=== PATIENT | female | born 1950 | race Caucasian/White ===

== ENCOUNTER 2018-07-03 10:59 | Outpatient (REF) | payer MEDICARE, BC, OTHER, SELFPAY ==
[2018-07-03 12:10] LABS: Abs Immature Grans 0.02 k/cumm (0.0-0.09); Absolute Basophil Count 0.03 k/cumm (0.0-0.2); Absolute Eosinophil Count 0.41 k/cumm (0.0-0.7); Absolute Lymphocyte Count 1.89 k/cumm (1.2-3.4); Absolute Monocyte Count 1.41 k/cumm (0.11-0.7); Absolute Neutrophil Count 5.26 k/cumm (1.2-6.7); Basophils % 0.3; Eosinophils % 4.5; HGB 7.3 g/dL (12.0-15.5); Immature Grans % 0.2; Mean Corp. HGB Concentration 31.7 g/dL (32.0-36.0); Mean Corpuscular Hemoglobin 31.2 pg (27.0-33.0); Mean Corpuscular Volume 98.3 fL (80-95); Mean Platelet Volume 10.4 fL (8.0-11.0); Monocytes % 15.6; Neutrophils % 58.4; Platelet Count 318 x1000/uL (130-400); RBC 2.34 m/cumm (4.00-5.20); RBC Distribution Width 14.6 % (11.7-14.6); White Blood Cell Count 9.02 k/cumm (4.4-10.8)
[2018-07-03 12:15] LABS: Vancomycin, Trough 17.5 ug/mL (10.0-20.0)
[2018-07-03 12:26] LABS: C-Reactive Protein 6.34 mg/dL (0.0-0.3)
== END 2018-07-03 11:19 ==
LOC: LBO 10:59
PROVIDERS: PCP Family Medicine; Visit Provider Orthopaedic Surgery Adult Reconstructive Orthopaedic Surgery
DX: M01.X59 Direct infection of unspecified hip in infectious and parasitic diseases classified elsewhere (principal); Z96.642 Presence of left artificial hip joint
CPT/HCPCS: 80202; 85025; 86140

== ENCOUNTER 2018-07-06 14:54 | Outpatient (REF) | payer MEDICARE, BC, OTHER, SELFPAY ==
[2018-07-06 16:18] LABS: ALT 24 U/L (12-78); AST 32 U/L (15-37); Albumin 2.5 g/dL (3.4-5.0); Alkaline Phosphatase 93 U/L (46-116); Anion Gap 10.7 mmol/L (3-11); BUN 11 mg/dL (7-18); Bilirubin, Total 0.3 mg/dL (0.2-1.0); CO2 25.3 mmol/L (21.0-32.0); Calcium 8.2 mg/dL (8.5-10.1); Chloride 104 mmol/L (98-107); Estimated GFR 37.18 (mL/min/1.73m2); Glucose 83 mg/dL (70-100); Potassium 3.9 mmol/L (3.5-5.1); Sodium 140 mmol/L (136-145); Total Protein 6.1 g/dL (6.4-8.2)
== END 2018-07-06 15:14 ==
LOC: LBN 14:54
PROVIDERS: PCP Family Medicine; Visit Provider Orthopaedic Surgery Adult Reconstructive Orthopaedic Surgery
DX: T84.52XD Infection and inflammatory reaction due to internal left hip prosthesis, subsequent encounter (principal)
CPT/HCPCS: 80053

== ENCOUNTER 2018-07-10 11:16 | Outpatient (CLI) | payer MEDICARE, BC, OTHER, SELFPAY ==
[2018-07-10 12:04] LABS: Abs Immature Grans 0.02 k/cumm (0.0-0.09); Absolute Basophil Count 0.04 k/cumm (0.0-0.2); Absolute Monocyte Count 1.05 k/cumm (0.11-0.7); Basophils % 0.3; Eosinophils % 1.9; HGB 8.4 g/dL (12.0-15.5); Immature Grans % 0.1; Lymphocytes % 10.4; Mean Corp. HGB Concentration 31.1 g/dL (32.0-36.0); Mean Corpuscular Hemoglobin 30.8 pg (27.0-33.0); Mean Corpuscular Volume 98.9 fL (80-95); Mean Platelet Volume 9.5 fL (8.0-11.0); Monocytes % 7.8; Neutrophils % 79.5; Platelet Count 491 x1000/uL (130-400); RBC 2.73 m/cumm (4.00-5.20); RBC Distribution Width 15.9 % (11.7-14.6); White Blood Cell Count 13.46 k/cumm (4.4-10.8)
[2018-07-10 12:06] LABS: Absolute Eosinophil Count 0.26 k/cumm (0.0-0.7)
[2018-07-10 12:23] LABS: Diff Comment RBC Morph Reviewed
[2018-07-10 12:24] LABS: Anisocytosis 1+; Hypochromasia 1+; Polychromasia Present
[2018-07-10 12:29] LABS: ALT 20 U/L (12-78); AST 34 U/L (15-37); Albumin 2.9 g/dL (3.4-5.0); Alkaline Phosphatase 106 U/L (46-116); Anion Gap 9.3 mmol/L (3-11); BUN 9 mg/dL (7-18); Bilirubin, Total 0.4 mg/dL (0.2-1.0); CO2 26.7 mmol/L (21.0-32.0); CREATININE 1.25 mg/dL (0.55-1.02); Calcium 8.7 mg/dL (8.5-10.1); Chloride 103 mmol/L (98-107); Estimated GFR 42.37 (mL/min/1.73m2); Glucose 92 mg/dL (70-100); Sodium 139 mmol/L (136-145); Total Protein 6.8 g/dL (6.4-8.2)
== END 2018-07-10 11:36 ==
PROVIDERS: Internal Medicine Infectious Disease; PCP Family Medicine; Visit Provider Orthopaedic Surgery Adult Reconstructive Orthopaedic Surgery
DX: Z79.2 Long term (current) use of antibiotics (principal); M00.9 Pyogenic arthritis, unspecified
CPT/HCPCS: 36415; 80053; 85025; 86140

== ENCOUNTER 2018-07-10 11:32 | Outpatient (REF) | payer MEDICARE, BC, OTHER, SELFPAY | END 2018-07-10 11:52 | LOC: LBN 11:32 | PROVIDERS: PCP Family Medicine; Visit Provider Orthopaedic Surgery Adult Reconstructive Orthopaedic Surgery | DX: T84.52XD Infection and inflammatory reaction due to internal left hip prosthesis, subsequent encounter (principal); M01.X52 Direct infection of left hip in infectious and parasitic diseases classified elsewhere | CPT/HCPCS: 87324 ==

== ENCOUNTER 2018-07-10 14:01 | Outpatient (CLI) | payer MEDICARE, BC, OTHER, SELFPAY ==
--- NOTE | 2018-07-10 13:12 | DI.RAD_ITS ---
SYMPTOM/DIAGNOSIS: SENIOR LIVING USE ANTIBIOTICS, Z79.2, PICC LINE PLACEMENT PA CHEST; A single PA view was performed. Comparison is made with 10/02/16. Heart size and pulmonary vasculature appear stable. No focal consolidating infiltrates are present. There is blunting of the costophrenic angles bilaterally. This may represent small pleural effusions or scarring. No pneumothorax is identified. There is a right PICC line, the tip of the catheter is in good position in the superior vena cava. IMPRESSION: 1. Right PICC line placement. The tip is seen in good position in the superior vena cava. 2. Blunting of the right costophrenic angles bilaterally. This may represent very small pleural effusions.
== END 2018-07-10 14:21 ==
PROVIDERS: PCP Family Medicine; Visit Provider Internal Medicine Infectious Disease
DX: R91.8 Other nonspecific abnormal finding of lung field (principal); Z79.2 Long term (current) use of antibiotics; Z45.2 Encounter for adjustment and management of vascular access device
CPT/HCPCS: 71045

== ENCOUNTER 2018-07-10 14:38 | Outpatient (RCR) | payer MEDICARE, BC, OTHER, SELFPAY ==
[2018-07-10] MEDS: Normal Saline Flush 10 ML SYR IVP (13:25)
== END 2018-08-02 23:59 | disposition home or self-care (01) ==
LOC: INF 14:38
PROVIDERS: PCP Family Medicine; Visit Provider Internal Medicine Infectious Disease
DX: Z45.2 Encounter for adjustment and management of vascular access device (principal)
CPT/HCPCS: 36415; 80053; 96523; 71045; 85025; 86140

== ENCOUNTER 2018-07-13 09:55 | Outpatient (REF) | payer MEDICARE, BC, OTHER, SELFPAY ==
[2018-07-13 10:24] LABS: Abs Immature Grans 0.02 k/cumm (0.0-0.09); Absolute Basophil Count 0.07 k/cumm (0.0-0.2); Absolute Eosinophil Count 0.38 k/cumm (0.0-0.7); Absolute Monocyte Count 1.06 k/cumm (0.11-0.7); Absolute Neutrophil Count 5.18 k/cumm (1.2-6.7); Basophils % 0.9; Eosinophils % 4.6; HCT 24.6 % (36.0-46.0); HGB 7.7 g/dL (12.0-15.5); Immature Grans % 0.2; Lymphocytes % 18.3; Mean Corp. HGB Concentration 31.3 g/dL (32.0-36.0); Mean Corpuscular Hemoglobin 31.2 pg (27.0-33.0); Mean Corpuscular Volume 99.6 fL (80-95); Mean Platelet Volume 10.1 fL (8.0-11.0); Monocytes % 12.9; Neutrophils % 63.1; Platelet Count 407 x1000/uL (130-400); RBC 2.47 m/cumm (4.00-5.20); RBC Distribution Width 16.3 % (11.7-14.6); White Blood Cell Count 8.21 k/cumm (4.4-10.8)
[2018-07-13 10:28] LABS: C-Reactive Protein 2.39 mg/dL (0.0-0.3)
== END 2018-07-13 10:15 ==
LOC: LBN 09:55
PROVIDERS: PCP Family Medicine; Visit Provider Internal Medicine Infectious Disease
DX: M00.9 Pyogenic arthritis, unspecified (principal); Z79.2 Long term (current) use of antibiotics
CPT/HCPCS: 85025; 86140

== ENCOUNTER 2018-07-17 11:09 | Outpatient (REF) | payer MEDICARE, BC, OTHER, SELFPAY ==
[2018-07-17 12:21] LABS: Abs Immature Grans 0.02 k/cumm (0.0-0.09); Absolute Basophil Count 0.06 k/cumm (0.0-0.2); Absolute Eosinophil Count 0.34 k/cumm (0.0-0.7); Absolute Lymphocyte Count 1.03 k/cumm (1.2-3.4); Absolute Monocyte Count 0.94 k/cumm (0.11-0.7); Absolute Neutrophil Count 5.06 k/cumm (1.2-6.7); Basophils % 0.8; Eosinophils % 4.6; HGB 8.1 g/dL (12.0-15.5); Immature Grans % 0.3; Lymphocytes % 13.8; Mean Corp. HGB Concentration 31.2 g/dL (32.0-36.0); Mean Corpuscular Hemoglobin 30.9 pg (27.0-33.0); Mean Corpuscular Volume 99.2 fL (80-95); Mean Platelet Volume 10.9 fL (8.0-11.0); Monocytes % 12.6; Neutrophils % 67.9; Platelet Count 334 x1000/uL (130-400); RBC 2.62 m/cumm (4.00-5.20); RBC Distribution Width 16.4 % (11.7-14.6); White Blood Cell Count 7.45 k/cumm (4.4-10.8)
[2018-07-17 12:31] LABS: ALT 15 U/L (12-78); AST 19 U/L (15-37); Albumin 2.7 g/dL (3.4-5.0); Alkaline Phosphatase 86 U/L (46-116); Anion Gap 7.6 mmol/L (3-11); BUN 10 mg/dL (7-18); Bilirubin, Total 0.4 mg/dL (0.2-1.0); C-Reactive Protein 1.84 mg/dL (0.0-0.3); CO2 28.4 mmol/L (21.0-32.0); CREATININE 0.87 mg/dL (0.55-1.02); Calcium 8.7 mg/dL (8.5-10.1); Chloride 104 mmol/L (98-107); Glucose 91 mg/dL (70-100); Potassium 3.7 mmol/L (3.5-5.1); Sodium 140 mmol/L (136-145); Total Protein 6.5 g/dL (6.4-8.2)
[2018-07-17 13:35] LABS: Diff Comment RBC Morph Reviewed
[2018-07-17 13:36] LABS: Anisocytosis 1+; Hypochromasia 1+; Poikilocytes 1+; Polychromasia Present
== END 2018-07-17 11:29 ==
LOC: LBN 11:09
PROVIDERS: PCP Family Medicine; Visit Provider Orthopaedic Surgery Adult Reconstructive Orthopaedic Surgery
DX: T84.52XD Infection and inflammatory reaction due to internal left hip prosthesis, subsequent encounter (principal)
CPT/HCPCS: 80053; 85025; 86140

== ENCOUNTER 2018-07-24 10:50 | Outpatient (REF) | payer MEDICARE, BC, OTHER, SELFPAY ==
[2018-07-24 13:25] LABS: Abs Immature Grans 0.02 k/cumm (0.0-0.09); Absolute Basophil Count 0.07 k/cumm (0.0-0.2); Absolute Eosinophil Count 0.19 k/cumm (0.0-0.7); Absolute Lymphocyte Count 1.27 k/cumm (1.2-3.4); Absolute Monocyte Count 1.13 k/cumm (0.11-0.7); Absolute Neutrophil Count 6.23 k/cumm (1.2-6.7); Basophils % 0.8; Eosinophils % 2.1; HCT 29.5 % (36.0-46.0); HGB 8.9 g/dL (12.0-15.5); Immature Grans % 0.2; Lymphocytes % 14.3; Mean Corp. HGB Concentration 30.2 g/dL (32.0-36.0); Mean Corpuscular Hemoglobin 30.4 pg (27.0-33.0); Mean Corpuscular Volume 100.7 fL (80-95); Mean Platelet Volume 10.8 fL (8.0-11.0); Monocytes % 12.7; Neutrophils % 69.9; Platelet Count 367 x1000/uL (130-400); RBC 2.93 m/cumm (4.00-5.20); White Blood Cell Count 8.91 k/cumm (4.4-10.8)
[2018-07-24 14:54] LABS: ALT 16 U/L (12-78); AST 23 U/L (15-37); Albumin 2.9 g/dL (3.4-5.0); Alkaline Phosphatase 90 U/L (46-116); Anion Gap 9.5 mmol/L (3-11); BUN 8 mg/dL (7-18); Bilirubin, Total 0.3 mg/dL (0.2-1.0); C-Reactive Protein 1.13 mg/dL (0.0-0.3); CO2 27.5 mmol/L (21.0-32.0); CREATININE 1.21 mg/dL (0.55-1.02); Chloride 102 mmol/L (98-107); Estimated GFR 43.99 (mL/min/1.73m2); Glucose 91 mg/dL (70-100); Potassium 3.8 mmol/L (3.5-5.1); Sodium 139 mmol/L (136-145); Total Protein 6.8 g/dL (6.4-8.2)
== END 2018-07-24 11:10 ==
LOC: LBN 10:50
PROVIDERS: PCP Family Medicine; Visit Provider Internal Medicine Infectious Disease
DX: Z79.2 Long term (current) use of antibiotics (principal); T84.52XD Infection and inflammatory reaction due to internal left hip prosthesis, subsequent encounter
CPT/HCPCS: 80053; 85025; 86140

== ENCOUNTER 2018-11-22 10:56 | Outpatient (REF) | payer MEDICARE, OTHER, BC, SELFPAY ==
[2018-11-23 14:42] LABS: Helicobacter pylori Ag, Feces Negative (NEGAT)
== END 2018-11-22 11:16 ==
LOC: LBN 10:56
PROVIDERS: PCP Family Medicine; Visit Provider Family Medicine
DX: R10.13 Epigastric pain (principal)
CPT/HCPCS: 87338

== ENCOUNTER 2019-01-05 10:51 | Outpatient (CLI) | payer MEDICARE, BC, OTHER, SELFPAY ==
[2019-01-05 13:03] LABS: Abs Immature Grans 0.01 k/cumm (0.0-0.09); Absolute Basophil Count 0.06 k/cumm (0.0-0.2); Absolute Eosinophil Count 0.13 k/cumm (0.0-0.7); Absolute Lymphocyte Count 1.75 k/cumm (1.2-3.4); Absolute Monocyte Count 0.74 k/cumm (0.11-0.7); Absolute Neutrophil Count 4.42 k/cumm (1.2-6.7); Basophils % 0.8; Eosinophils % 1.8; HCT 34.8 % (36.0-46.0); HGB 10.7 g/dL (12.0-15.5); Immature Grans % 0.1; Lymphocytes % 24.6; Mean Corp. HGB Concentration 30.7 g/dL (32.0-36.0); Mean Corpuscular Hemoglobin 27.4 pg (27.0-33.0); Mean Platelet Volume 10.6 fL (8.0-11.0); Monocytes % 10.4; Neutrophils % 62.3; Platelet Count 301 x1000/uL (130-400); RBC 3.91 m/cumm (4.00-5.20); RBC Distribution Width 17.5 % (11.7-14.6); White Blood Cell Count 7.11 k/cumm (4.4-10.8)
== END 2019-01-05 11:11 ==
PROVIDERS: PCP Family Medicine; Visit Provider Family Medicine
DX: D72.829 Elevated white blood cell count, unspecified (principal)
CPT/HCPCS: 36415; 85025

== ENCOUNTER 2019-02-14 08:28 | Outpatient (CLI) | payer MEDICARE, BC, OTHER, SELFPAY ==
[2019-02-14 11:46] LABS: Iron 40 ug/dL (50-175)
[2019-02-14 12:17] LABS: Ferritin 23 ng/mL (8-388); Vitamin B12 282 pg/mL (193-986)
== END 2019-02-14 08:48 ==
PROVIDERS: PCP Family Medicine; Visit Provider Family Medicine
DX: D64.9 Anemia, unspecified (principal)
CPT/HCPCS: 36415; 80186; 82607; 82728; 83540

== ENCOUNTER 2019-02-15 02:15 | Outpatient (CLI) | payer MEDICARE, BC, OTHER, SELFPAY ==
[2019-02-16 09:35] LABS: Homocysteine 9.2 umol/L (4.5-12.4)
[2019-02-20 09:58] LABS: Methylmalonic Acid 0.31 nmol/mL (<=0.40)
== END 2019-02-15 02:35 ==
PROVIDERS: PCP Family Medicine; Visit Provider Family Medicine
DX: E53.8 Deficiency of other specified B group vitamins (principal)
CPT/HCPCS: 36415; 80186; 83090

== ENCOUNTER 2019-04-11 11:23 | Outpatient (CLI) | payer MEDICARE, BC, OTHER, SELFPAY ==
[2019-04-11 12:30] LABS: Abs Immature Grans 0.01 k/cumm (0.0-0.09); Absolute Basophil Count 0.05 k/cumm (0.0-0.2); Absolute Eosinophil Count 0.26 k/cumm (0.0-0.7); Absolute Lymphocyte Count 2.24 k/cumm (1.2-3.4); Absolute Monocyte Count 0.74 k/cumm (0.11-0.7); Absolute Neutrophil Count 4.33 k/cumm (1.2-6.7); Basophils % 0.7; Eosinophils % 3.4; HCT 40.5 % (36.0-46.0); HGB 13.4 g/dL (12.0-15.5); Immature Grans % 0.1; Lymphocytes % 29.4; Mean Corp. HGB Concentration 33.1 g/dL (32.0-36.0); Mean Corpuscular Hemoglobin 30.8 pg (27.0-33.0); Mean Corpuscular Volume 93.1 fL (80-95); Mean Platelet Volume 10.9 fL (8.0-11.0); Monocytes % 9.7; Neutrophils % 56.7; Platelet Count 221 x1000/uL (130-400); RBC 4.35 m/cumm (4.00-5.20); RBC Distribution Width 18.1 % (11.7-14.6); White Blood Cell Count 7.63 k/cumm (4.4-10.8)
[2019-04-11 13:06] LABS: Anion Gap 6.5 mmol/L (3-11); BUN 17 mg/dL (7-18); CO2 28.5 mmol/L (21.0-32.0); CREATININE 1.01 mg/dL (0.55-1.02); Calcium 9.9 mg/dL (8.5-10.1); Chloride 104 mmol/L (98-107); Estimated GFR 54.03 (mL/min/1.73m2); Glucose 85 mg/dL (70-100); Potassium 4.6 mmol/L (3.5-5.1); Sodium 139 mmol/L (136-145)
[2019-04-11 13:44] LABS: Diff Comment RBC Morph Reviewed
[2019-04-11 13:45] LABS: Anisocytosis 1+
== END 2019-04-11 11:43 ==
PROVIDERS: PCP Family Medicine; Visit Provider Family Medicine
DX: R10.9 Unspecified abdominal pain (principal)
CPT/HCPCS: 36415; 80048; 85025

== ENCOUNTER 2020-03-21 04:15 | Outpatient (CLI) | payer MEDICARE, BC, OTHER, SELFPAY ==
[2020-03-21 11:13] LABS: HCT 40.9 % (36.0-46.0); HGB 13.8 g/dL (12.0-15.5); Mean Corp. HGB Concentration 33.7 g/dL (32.0-36.0); Mean Corpuscular Hemoglobin 33.1 pg (27.0-33.0); Mean Corpuscular Volume 98.1 fL (80-95); Platelet Count 227 x1000/uL (130-400); RBC 4.17 m/cumm (4.00-5.20); RBC Distribution Width 13.5 % (11.7-14.6); White Blood Cell Count 8.22 k/cumm (4.4-10.8)
[2020-03-21 12:31] LABS: Anion Gap 9.7 mmol/L (3-11); BUN 22 mg/dL (7-18); CO2 24.3 mmol/L (21.0-32.0); CREATININE 1.61 mg/dL (0.55-1.02); Calcium 10.2 mg/dL (8.5-10.1); Calculated LDL 103 mg/dL (<100); Chloride 102 mmol/L (98-107); Cholesterol 191 mg/dL (<200); Estimated GFR 31.46 (mL/min/1.73m2); Glucose 93 mg/dL (74-106); HDL Cholesterol 64 mg/dL (40-60); Potassium 5.8 mmol/L (3.5-5.1); Sodium 136 mmol/L (136-145); Triglyceride 123 mg/dL (<150)
== END 2020-03-21 04:35 ==
PROVIDERS: PCP Family Medicine; Visit Provider Family Medicine
DX: E78.5 Hyperlipidemia, unspecified (principal); E87.1 Hypo-osmolality and hyponatremia; J18.9 Pneumonia, unspecified organism
CPT/HCPCS: 36415; 80048; 80061; 85027

== ENCOUNTER 2020-04-16 01:26 | Outpatient (CLI) | payer MEDICARE, BC, OTHER, SELFPAY ==
[2020-04-16 13:25] LABS: CREATININE 1.54 mg/dL (0.55-1.02); Estimated GFR 33.11 (mL/min/1.73m2); Potassium 3.7 mmol/L (3.5-5.1)
== END 2020-04-16 01:46 ==
PROVIDERS: PCP Family Medicine; Visit Provider Family Medicine
DX: I10 Essential (primary) hypertension (principal)
CPT/HCPCS: 36415; 82565; 84132

== ENCOUNTER 2020-06-17 13:31 | Outpatient (REF) | payer MEDICARE, BC, OTHER, SELFPAY ==
[2020-06-17 14:49] LABS: Anion Gap 9.5 mmol/L (3-11); BUN 20 mg/dL (7-18); CO2 26.5 mmol/L (21.0-32.0); CREATININE 1.36 mg/dL (0.55-1.02); Calcium 9.9 mg/dL (8.5-10.1); Chloride 102 mmol/L (98-107); Estimated GFR 38.22 (mL/min/1.73m2); Glucose 95 mg/dL (74-106); Potassium 4.4 mmol/L (3.5-5.1); Sodium 138 mmol/L (136-145)
== END 2020-06-17 13:51 ==
LOC: LBN 13:31
PROVIDERS: PCP Family Medicine; Visit Provider Family Medicine
DX: E87.1 Hypo-osmolality and hyponatremia (principal); I10 Essential (primary) hypertension
CPT/HCPCS: 80048

== ENCOUNTER 2020-06-20 03:49 | Outpatient (CLI) | payer MEDICARE, BC, OTHER, SELFPAY ==
--- NOTE | 2020-06-20 07:00 | DI.US_ITS ---
EXAM: US SOFT TISSUE HEAD OR NECK CLINICAL HISTORY: rt neck lump,ENLARGED LYMPH NODE,R59.0 TECHNIQUE: Ultrasound performed using standard protocol. COMPARISON: US RIGHT BREAST ULTRASOUND from 03/14/2017 FINDINGS: Soft tissue ultrasound was performed to evaluate a palpable abnormality right mid cervical region. U ltrasound shows a 12 x 8 17 millimeter in diameter masslike finding associated with the mid portion o f the common carotid artery. I am uncertain whether this masslike finding arises from or adjacent to the carotid artery. This may represent an extrinsic mass versus a thrombosed aneurysm or pseudoaneu rysm of the CCA. Mass is mildly heterogeneous and of moderate echogenicity. Incidental right thyroid nodules are also noted, the largest measuring about 15 millimeters in diamet er which is spondylophyte form, wider than tall, well-circumscribed, and contains no significant calc ifications. IMPRESSION: Masslike finding associated with midportion of right CCA. Extrinsic mass versus thrombosed aneurysm or pseudoaneurysm. CT angiography suggested for further evaluation. DATA REPOSITORY:
== END 2020-06-20 04:09 ==
PROVIDERS: PCP Family Medicine; Visit Provider Family Medicine
DX: R59.0 Localized enlarged lymph nodes (principal)
CPT/HCPCS: 76536

== ENCOUNTER 2020-07-03 02:49 | Outpatient (CLI) | payer MEDICARE, BC, OTHER, SELFPAY ==
--- NOTE | 2020-07-03 07:30 | DI.MRI_ITS ---
EXAM: MR ANGIO NECK WO CLINICAL HISTORY: mass rt neck,R22.1. TECHNIQUE: 2D and 3D [id number] studies were performed.. COMPARISON: US US SOFT TISSUE HEAD OR NECK from 06/20/2020 FINDINGS: Common Carotid: Right: Normal. Left: Normal. External Carotid: Right: Normal. Left: Normal. Internal Carotid: Right: Irregular segment of narrowing proximally causing proximally 50 percent diameter stenosis. Left: Normal. Vertebral Artery: Right: Normal. Left: Normal. IMPRESSION: Irregular area of narrowing of the proximal left internal carotid artery approximately 50 percent. T he soft tissues are not visualized on this exam. MRI of the neck or CT of the neck with contrast cou ld be considered for further evaluation of a mass.. DATA REPOSITORY:
== END 2020-07-03 03:09 ==
PROVIDERS: PCP Family Medicine; Visit Provider Family Medicine
DX: R22.1 Localized swelling, mass and lump, neck (principal); I65.22 Occlusion and stenosis of left carotid artery
CPT/HCPCS: 70547

== ENCOUNTER 2020-07-25 03:04 | Outpatient (CLI) | payer MEDICARE, BC, OTHER, SELFPAY ==
--- NOTE | 2020-07-25 11:00 | DI.MRI_ITS ---
EXAM: MR ORBIT FACIAL NECK WO CLINICAL HISTORY: rt neck mass,R22.1. TECHNIQUE: Multiplanar multisequence MRI was performed. COMPARISON: US CAROTID ULTRASOUND from 04/18/2013 US US SOFT TISSUE HEAD OR NECK from 06/20/2020 FINDINGS: Exam is limited by patient motion and large field of view. The patient refused contrast. There is mucous retention in the right maxillary sinus and some mucosal thickening of the ethmoid sin uses. The visualized portions of the orbits and brain are unremarkable. The parotid and submandibul ar glands are unremarkable. 1.4 centimeter mass is vaguely visible adjacent to the mid common caroti d artery. A 3.4 centimeter nodule is noted in the substernal region which appears to represent a nod ule extending inferiorly from the thyroid. The marrow signal appears normal. There are degenerative disc changes at C5-6 with disc osteophytes extending posteriorly into the canal causing some narrowi ng of the AP dimension of the canal. The cord signal is normal. IMPRESSION: Extremely limited exam. The mass seen adjacent to the right carotid on ultrasound is not well evalua abimael. A 3.4 centimeter nodule is noted in the substernal region which appears to represent a thyroid nodule . DATA REPOSITORY:
== END 2020-07-25 03:24 ==
PROVIDERS: PCP Family Medicine; Visit Provider Family Medicine
DX: R22.1 Localized swelling, mass and lump, neck (principal)
CPT/HCPCS: 70540

== ENCOUNTER 2020-12-16 12:47 | Outpatient (REF) | payer MEDICARE, BC, OTHER, SELFPAY ==
[2020-12-16 14:01] LABS: Anion Gap 12.9 mmol/L (3-11); BUN 29 mg/dL (7-18); CO2 25.1 mmol/L (21.0-32.0); CREATININE 1.7 mg/dL (0.55-1.02); Calcium 9.3 mg/dL (8.5-10.1); Chloride 101 mmol/L (98-107); Estimated GFR 29.54 (mL/min/1.73m2); Glucose 90 mg/dL (74-106); Potassium 3.5 mmol/L (3.5-5.1); Sodium 139 mmol/L (136-145)
[2020-12-16 14:33] LABS: HCT 37.2 % (36.0-46.0); HGB 12.3 g/dL (11.2-15.7); MCH 31.9 pg (27.0-33.0); MCHC 33.1 % (32.0-36.0); MCV 96.4 fL (80-95); MPV 12.5 fL (8.0-11.0); Platelet Count 179 10^3/uL (130-400); RBC 3.86 10^6/uL (3.93-5.22); RDW 13.4 % (11.7-14.6); RDW-SD 47.7 fL; WBC 7.24 10^3/uL (4.4-10.8)
== END 2020-12-16 12:48 | disposition home or self-care (01) ==
LOC: LBN 12:47
PROVIDERS: PCP Family Medicine; Visit Provider Family Medicine
DX: D64.9 Anemia, unspecified (principal); E87.1 Hypo-osmolality and hyponatremia
CPT/HCPCS: 80048; 85027

== ENCOUNTER 2020-12-30 14:12 | Outpatient (REF) | payer MEDICARE, BC, OTHER, SELFPAY ==
[2020-12-30 13:46] LABS: HCT 24.7 % (36.0-46.0); HGB 8.2 g/dL (11.2-15.7); MCH 32.8 pg (27.0-33.0); MCHC 33.2 % (32.0-36.0); MCV 98.8 fL (80-95); MPV 11.4 fL (8.0-11.0); Platelet Count 287 10^3/uL (130-400); RDW 13.6 % (11.7-14.6); RDW-SD 48.7 fL; WBC 8.51 10^3/uL (4.4-10.8)
[2020-12-30 14:15] LABS: Anion Gap 11.7 mmol/L (3-11); BUN 20 mg/dL (7-18); CO2 28.3 mmol/L (21.0-32.0); CREATININE 2.1 mg/dL (0.55-1.02); Calcium 9.5 mg/dL (8.5-10.1); Chloride 98 mmol/L (98-107); Estimated GFR 23.15 (mL/min/1.73m2); Glucose 97 mg/dL (74-106); Magnesium 1.7 mg/dL (1.8-2.4); Potassium 3.3 mmol/L (3.5-5.1); Sodium 138 mmol/L (136-145)
== END 2020-12-30 14:13 | disposition home or self-care (01) ==
LOC: LBN 14:12
PROVIDERS: PCP Family Medicine; Visit Provider Family Medicine
DX: D64.9 Anemia, unspecified (principal); E83.42 Hypomagnesemia; E87.1 Hypo-osmolality and hyponatremia
CPT/HCPCS: 80048; 85027; 83735

== ENCOUNTER 2021-01-06 04:11 | Outpatient (CLI) | payer MEDICARE, BC, OTHER, SELFPAY ==
[2021-01-06 12:10] LABS: Anion Gap 11.9 mmol/L (3-11); BUN 14 mg/dL (7-18); CO2 25.1 mmol/L (21.0-32.0); CREATININE 1.6 mg/dL (0.55-1.02); Calcium 8.8 mg/dL (8.5-10.1); Chloride 102 mmol/L (98-107); Estimated GFR 31.68 (mL/min/1.73m2); Glucose 82 mg/dL (74-106); Potassium 3.4 mmol/L (3.5-5.1); Sodium 139 mmol/L (136-145)
== END 2021-01-06 04:12 | disposition home or self-care (01) ==
LOC: LBO 04:11
PROVIDERS: PCP Family Medicine; Visit Provider Family Medicine
DX: E87.1 Hypo-osmolality and hyponatremia (principal)
CPT/HCPCS: 36415; 80048

== ENCOUNTER 2021-05-26 15:47 | Outpatient (CLI) | payer MEDICARE, BC, OTHER, SELFPAY ==
--- NOTE | 2021-05-26 14:45 | DI.US_ITS ---
Exam(s) US LOWER EXTREMITY VENOUS LT EXAM: US LOWER EXTREMITY VENOUS LT CLINICAL HISTORY: swelling/pain/positive D dimer M79.662 PAIN LT LOWER LEG. TECHNIQUE: Lower extremity venous ultrasound performed using grayscale, color-flow, and spectral Do ppler analysis. COMPARISON: No exams were available for comparison FINDINGS: The common femoral, femoral and popliteal veins demonstrate normal compressibility, augmentation, and color Doppler. The posterior tibial veins are patent. No saphenous vein thrombosis or other superfi cial venous thrombosis is seen. No hematoma or Kerr's cyst is seen. IMPRESSION: Negative lower extremity ultrasound. No evidence of DVT. DATA REPOSITORY:
== END 2021-05-26 16:07 ==
PROVIDERS: PCP Family Medicine; Visit Provider Family Medicine
DX: M79.662 Pain in left lower leg (principal)
CPT/HCPCS: 93971

== ENCOUNTER 2021-05-26 16:06 | Outpatient (CLI) | payer MEDICARE, BC, OTHER, SELFPAY ==
[2021-05-26 14:13] LABS: D-Dimer 3377 ng/mlFEU (<500)
[2021-05-28 16:22] LABS: Milk, IgE <0.35 kU/L; Oat, IgE <0.35 kU/L; Soybean IgE <0.35 kU/L
== END 2021-05-26 16:07 | disposition home or self-care (01) ==
LOC: LBO 16:18
PROVIDERS: PCP Family Medicine; Visit Provider Family Medicine
DX: R21 Rash and other nonspecific skin eruption (principal); M79.89 Other specified soft tissue disorders
CPT/HCPCS: 36415; 85379; 86003; 93971

== ENCOUNTER 2021-06-03 09:58 | Outpatient (CLI) | payer MEDICARE, BC, OTHER, SELFPAY ==
[2021-06-03 12:55] LABS: Anion Gap 13.6 mmol/L (3-11); BUN 17 mg/dL (7-18); CO2 26.4 mmol/L (21.0-32.0); CREATININE 1.4 mg/dL (0.55-1.02); Calcium 9.3 mg/dL (8.5-10.1); Calculated LDL 76 mg/dL (<100); Chloride 101 mmol/L (98-107); Cholesterol 155 mg/dL (<200); Estimated GFR 36.86 (mL/min/1.73m2); Glucose 76 mg/dL (74-106); HDL Cholesterol 64 mg/dL (40-60); Potassium 3.6 mmol/L (3.5-5.1); Sodium 141 mmol/L (136-145); Triglyceride 77 mg/dL (<150)
[2021-06-03 21:28] LABS: Magnesium 1.8 mg/dL (1.7-2.8)
[2021-06-11 16:36] LABS: 1,25-Dihydroxyvitamin D 62 pg/mL (18-78)
== END 2021-06-03 09:59 | disposition home or self-care (01) ==
LOC: LOS 10:04
PROVIDERS: PCP Family Medicine; Visit Provider Family Medicine
DX: E78.5 Hyperlipidemia, unspecified (principal); E87.1 Hypo-osmolality and hyponatremia; E83.42 Hypomagnesemia; M81.8 Other osteoporosis without current pathological fracture
CPT/HCPCS: 36415; 80048; 80061; 82652; 83735

== ENCOUNTER 2021-12-09 16:05 | Outpatient (REF) | payer MEDICARE, BC, OTHER, SELFPAY ==
[2021-12-09 20:49] LABS: HCT 37.9 % (36.0-46.0); HGB 11.6 g/dL (11.2-15.7); MCH 28.4 pg (27.0-33.0); MCHC 30.6 % (32.0-36.0); MCV 92.9 fL (80-95); MPV 12.6 fL (8.0-11.0); Platelet Count 105 10^3/uL (130-400); RBC 4.08 10^6/uL (3.93-5.22); RDW 17.6 % (11.7-14.6); RDW-SD 59.7 fL; WBC 6.09 10^3/uL (4.4-10.8)
[2021-12-09 21:16] LABS: ALT 28 U/L (14-59); AST 41 U/L (15-37); Albumin 3.5 g/dL (3.4-5.0); Alkaline Phosphatase 147 U/L (46-116); Anion Gap 12.4 mmol/L (3-11); BUN 22 mg/dL (7-18); Bilirubin, Total 1.4 mg/dL (0.2-1.0); CO2 22.6 mmol/L (21.0-32.0); CREATININE 1.7 mg/dL (0.55-1.02); Calcium 8.9 mg/dL (8.5-10.1); Chloride 105 mmol/L (98-107); Estimated GFR 29.46 (mL/min/1.73m2); Glucose 88 mg/dL (74-106); Potassium 3.8 mmol/L (3.5-5.1); Sodium 140 mmol/L (136-145); TSH (W/Ref FT4) 2.29 uIU/mL (0.36-3.74); Total Protein 7.6 g/dL (6.4-8.2)
== END 2021-12-09 16:06 | disposition home or self-care (01) ==
LOC: LBN 16:05
PROVIDERS: PCP Family Medicine; Visit Provider Family Medicine
DX: E03.9 Hypothyroidism, unspecified (principal); R53.83 Other fatigue; R10.9 Unspecified abdominal pain
CPT/HCPCS: 80053; 85027; 84443

== ENCOUNTER 2021-12-10 18:02 | Outpatient (REF) | payer MEDICARE, BC, OTHER, SELFPAY ==
[2021-12-10 20:58] LABS: Bacteria Negative HPF (Negative); C & S Indicated? No; Casts Negative LPF (Negative); Crystals Negative HPF (Negative); Epithelial Cells Few HPF (Negative); Mucus Negative (Negative); RBC 0-2 HPF (0-2)
[2021-12-10 21:03] LABS: Sodium, Urine 74 mmol/L
[2021-12-10 21:09] LABS: COMMENT (LAB VIEW ONLY) 118.26 mg/dL; PROTEIN 172.3 mg/dL; Prot/Crea Ur Ratio 1.45
== END 2021-12-10 18:03 | disposition home or self-care (01) ==
LOC: LBN 18:02
PROVIDERS: PCP Family Medicine; Visit Provider Family Medicine
DX: R30.0 Dysuria (principal); E87.1 Hypo-osmolality and hyponatremia; N28.9 Disorder of kidney and ureter, unspecified
CPT/HCPCS: 81015; 82565; 84156; 84300

== ENCOUNTER 2022-01-14 02:16 | Outpatient (CLI) | payer MEDICARE, BC, OTHER, SELFPAY ==
[2022-01-14 12:57] LABS: Anion Gap 11.1 mmol/L (3-11); BUN 65 mg/dL (7-18); CO2 26.9 mmol/L (21.0-32.0); Calcium 8.9 mg/dL (8.5-10.1); Chloride 98 mmol/L (98-107); Estimated GFR 10.37 (mL/min/1.73m2); Glucose 85 mg/dL (74-106); Potassium 4.6 mmol/L (3.5-5.1); Sodium 136 mmol/L (136-145)
[2022-01-14 13:03] LABS: CREATININE 4.2 mg/dL (0.55-1.02)
== END 2022-01-14 02:17 | disposition home or self-care (01) ==
LOC: LBO 02:16
PROVIDERS: PCP Family Medicine; Visit Provider Family Medicine
DX: E87.1 Hypo-osmolality and hyponatremia (principal)
CPT/HCPCS: 36415; 80048

== ENCOUNTER 2022-01-19 08:56 | Outpatient (CLI) | payer MEDICARE, BC, OTHER, SELFPAY ==
[2022-01-19 15:33] LABS: Bilirubin Negative (Negative); Blood Trace-intact (Negative); Clarity Clear (Clear); Glucose Negative (Negative); Ketones Negative (Negative); Leukocyte Esterase Negative (Negative); Nitrite Negative (Negative); Urobilinogen 0.2 EU/dL (Up TO 0.2); pH 6.5 (5-8)
[2022-01-19 15:51] LABS: Bacteria Negative HPF (Negative); C & S Indicated? No; Crystals Negative HPF (Negative); Epithelial Cells Rare HPF (Negative); Mucus Negative (Negative); RBC 0-2 HPF (0-2); WBC 0-2 HPF (0-5)
[2022-01-19 16:02] LABS: Anion Gap 11.7 mmol/L (3-11); BUN 50 mg/dL (7-18); CO2 24.3 mmol/L (21.0-32.0); CREATININE 2.7 mg/dL (0.55-1.02); Calcium 9.1 mg/dL (8.5-10.1); Chloride 101 mmol/L (98-107); Estimated GFR 17.27 (mL/min/1.73m2); Glucose 84 mg/dL (74-106); Potassium 4.7 mmol/L (3.5-5.1); Sodium 137 mmol/L (136-145)
[2022-01-19 16:11] LABS: COMMENT (LAB VIEW ONLY) 30.91 mg/dL
[2022-01-19 16:23] LABS: Microalb ug/mg Crea 431.3 ug/mg Cr
== END 2022-01-19 08:57 | disposition home or self-care (01) ==
LOC: LBO 08:56
PROVIDERS: Family Medicine; PCP Family Medicine; Visit Provider Family Medicine
DX: N18.9 Chronic kidney disease, unspecified (principal); N17.9 Acute kidney failure, unspecified
CPT/HCPCS: 36415; 80048; 81003; 81015; 82043; 82570

== ENCOUNTER → 2022-01-20 01:22 | Outpatient (CLI) | payer MEDICARE, BC, OTHER, SELFPAY ==
--- NOTE | 2022-01-20 08:00 | DI.US_ITS ---
Exam(s) US LOWER EXTREMITY VENOUS RT EXAM: US LOWER EXTREMITY VENOUS RT CLINICAL HISTORY: unexplained severe r. leg pain, assoc with edema,m79.604. TECHNIQUE: Ultrasound performed using standard protocol. COMPARISON: US US LOWER EXTREMITY VENOUS LT from 05/26/2021 FINDINGS: Duplex venous ultrasound was performed according to the usual protocol. The deep veins are freely com pressible throughout and there is normal flow augmentation with manual calf compression. 2D and Doppl er evaluation are unremarkable. IMPRESSION: No evidence of deep venous thrombosis of the right lower extremity. DATA REPOSITORY:
--- NOTE | 2022-01-20 08:00 | DI.RAD_ITS ---
Exam(s) XR HIP RT COMPLETE AP PELVIS EXAM: XR HIP RT COMPLETE AP PELVIS CLINICAL HISTORY: unexplained severe r. hip pain,m25.551,? fx or acute process TECHNIQUE: FINDINGS: Four views were obtained. There is total hip joint replacement in position on the left. There is no evidence of acute fracture or dislocation on the right or left. There are moderate degenerative giselle nges of the right hip noted. IMPRESSION: RADIATION DOSE DELIVERED: Total DLP
== END ==
PROVIDERS: PCP Family Medicine; Visit Provider Family Medicine
DX: M25.551 Pain in right hip (principal); Z96.642 Presence of left artificial hip joint; M16.11 Unilateral primary osteoarthritis, right hip; M79.604 Pain in right leg; R60.0 Localized edema
CPT/HCPCS: 73502; 93971

== ENCOUNTER → 2022-02-08 00:20 | Outpatient (CLI) | payer MEDICARE, BC, SELFPAY ==
--- NOTE | 2022-02-08 14:05 | DI.US_ITS ---
APPROVED REPORT EXAM: Comprehensive 2D, Doppler, and color-flow Echocardiogram Patient Location: Out-Patient [employer] Operator: Ivonne Davison RDCS (AE) Indications: Murmur, Fluid overload, HTN Other Information Study Quality: Adequate. Technically limited study due to inability to position patient, exam done si tting. Conclusion Moderate concentric left ventricular hypertrophy. Normal left ventricular chamber size. Estimated e jection fraction is 55%. Wall motion appears normal Normal right ventricular size and systolic function Both atria are normal in size The aortic valve is sclerotic with mild regurgitation. There is mild aortic stenosis with a peak gra dient of 18, mean of 10 mmHg. Calculated aortic valve area is 1.3 cm?? There is moderate mitral annular calcification, mild mitral regurgitation Normal tricuspid valve with mild regurgitation. Estimated right ventricular systolic pressure is 43 mmHg Wall motion Left Ventricle The left ventricle is normal size. The left ventricular systolic function is normal. The left ventric ular ejection fraction is within the normal range. moderate concentric left ventricular hypertrophy. There is normal LV segmental wall motion. There is no ventricular septal defect visualized. LVEF is 5 5%. Right Ventricle The right ventricle is normal size. The right ventricular systolic function is normal. The RVSP is 43 .4 mmHg. Atria The left atrium size is normal. The right atrium size is normal. The interatrial septum is intact wit h no evidence for an atrial septal defect. Aortic Valve Aortic valve is calcified. Aortic valve is trileaflet. Mild aortic stenosis. Mild aortic regurgitatio n. Mitral Valve Moderate mitral annular calcification. No evidence of mitral valve stenosis. Mild mitral regurgitatio n. Tricuspid Valve The tricuspid valve is normal in structure. There is no tricuspid valve stenosis. Mild tricuspid regu rgitation. Pulmonic Valve The pulmonary valve is normal in structure. There is no pulmonic valvular stenosis. Trace pulmonic re gurgitation. Great Vessels The aortic root is normal in size. The ascending aorta is normal in size. Aortic arch is not well vis ualized. IVC is normal in size and collapses >50% with inspiration. Pericardium There is no pericardial effusion. 2D Dimensions IVSD d PLAX 1.31 cm F: 0.6-1.0 LV Vol A2C d MOD 131.7 mL LVPW d PLAX 1.35 cm F: 0.6 - 1.0 LV Vol A4C d MOD 117.0 mL LVID d PLAX 4.00 cm F: 3.8 - 5.2 LA vol/ BSA A4C s A-L 35.8 mL/m2 LVDs 2.95 cm F: 2.2 - 3.5 LA Area A4C s MOD 18.31 cm2 Ao Root d 2.92 cm F: 2.7 - 3.3 LV EF A4C MOD 51.4 % RA Area A4C 14.35 cm2 LV EF A2C MOD 50.5 % RA Vol/ BSA A4C s A-L 25.9 mL/m2 LV EF Biplane MOD 52.4 % Ao Asc Diam d 2.51 cm F: 2.3 - 3.1 SV 69.94 mL LV EF Teichholz 51.8 % SV Index 48.68 mL/m2 LVEF (Watts's) 52.38 % F: 54 - 74 LV Volume 113.23 mL F: 46 - 106 LV Volume Index 79.18 mL/m2 F: 29 - 61 LV Vol Biplane MOD 133.5 mL FS 26.05 % M-Mode TAPSE 2.17 cm (M/F) >1.7 LV Diastology MV E' medial 0.040 (>0.07 m/s) E/A Ratio 0.9 LV E/e MED 24.60 (<14) MV E Vmax 0.99 (0.4-1.3 m/s) MV E' lateral 0.044 (>0.1 m/s) MV A Vmax 1.05 (0.4-1.3 m/s) LV E/e LAT 22.55 (<14) MV E/A Ratio 0.90 MV E/E' medial 24.62 MV E/E' lateral 22.57 Aortic Valve LVOT Area 2.97 cm2 AoV Area Vmax 1.30 cm2 LVOT Vmax 0.92 m/s AoV Area/ BSA (Vmax) 0.90 cm2/m2 LVOT Mean Omkar. 0.56 m/s BESSY Mean Omkar. 1.09 cm2 LVOT Peak Grad 3.4 mmHg BESSY Mean Omkar. Index 0.76 cm2/m2 LVOT Mean Grad 1.5 mmHg AR DT 1370 msec LVOT VTI 0.183 m AR PHT 397 msec LVOT Diam s 1.90 cm AoV Vmax 2.10 m/s Velocity Ratio 0.43 AoV Mean Omkar. 1.53 m/s AoV Peak Grad 17.7 mmHg LVOT SV 54.29 mL AoV Mean Grad 10.3 mmHg AoV VTI 0.451 m AoV Area VTI 1.20 cm2 AoV Area/ BSA (VTI) 0.84 cm/m2 Mitral Valve MV DT 275 (160-240 msec) MV PHT 80 msec MV Area PHT 2.76 cm2 MV VTI 0.375 m MV Area VTI 1.45 (4.0-6.0 cm2) Pulmonary Valve PV Vmax 0.82 (0.5-1.5 m/s) RVOT Peak Gr. 2.05 mmHg PV Peak Grad 2.7 mmHg RVOT Mean Gr. 0.90 mmHg PV Mean Grad 1.4 mmHg RVOT VTI 0.163 m PV VTI 0.175 m RVOT Vmax 0.72 m/s Tricuspid Valve TR Peak Grad 40.3 mmHg TR Vmax 3.18 m/s RA Pressure 3.00 mmHg RVSP (TR) 43.4 mmHg
== END ==
PROVIDERS: PCP Family Medicine; Visit Provider Family Medicine
DX: I10 Essential (primary) hypertension (principal); R01.1 Cardiac murmur, unspecified; E87.70 Fluid overload, unspecified
CPT/HCPCS: 93306

== ENCOUNTER 2022-02-08 01:39 | Outpatient (CLI) | payer MEDICARE, BC, OTHER, SELFPAY ==
[2022-02-08 16:45] LABS: Anion Gap 10.1 mmol/L (3-11); BUN 43 mg/dL (7-18); CO2 25.9 mmol/L (21.0-32.0); CREATININE 2.5 mg/dL (0.55-1.02); Calcium 9.1 mg/dL (8.5-10.1); Chloride 101 mmol/L (98-107); Estimated GFR 18.83 (mL/min/1.73m2); Glucose 90 mg/dL (74-106); Potassium 4.7 mmol/L (3.5-5.1); Sodium 137 mmol/L (136-145)
== END 2022-02-08 01:40 | disposition home or self-care (01) ==
LOC: LBO 01:39
PROVIDERS: PCP Family Medicine; Visit Provider Family Medicine
DX: E87.1 Hypo-osmolality and hyponatremia (principal)
CPT/HCPCS: 80048; 93306

== ENCOUNTER 2022-04-14 03:29 | Outpatient (CLI) | payer MEDICARE, BC, OTHER, SELFPAY ==
[2022-04-14 12:40] LABS: Anion Gap 11.1 mmol/L (3-11); BUN 42 mg/dL (7-18); CO2 26.9 mmol/L (21.0-32.0); CREATININE 2.5 mg/dL (0.55-1.02); Calcium 9.1 mg/dL (8.5-10.1); Chloride 102 mmol/L (98-107); Estimated GFR 18.83 (mL/min/1.73m2); Glucose 95 mg/dL (74-106); Potassium 4.4 mmol/L (3.5-5.1); Sodium 140 mmol/L (136-145)
[2022-04-17 09:21] LABS: Lab Add On Test DONE
[2022-04-17 09:41] LABS: TSH (W/Ref FT4) 0.92 uIU/mL (0.36-3.74)
== END 2022-04-14 03:30 | disposition home or self-care (01) ==
LOC: LOS 03:29
PROVIDERS: PCP Family Medicine; Visit Provider Family Medicine
DX: E03.9 Hypothyroidism, unspecified (principal); E87.1 Hypo-osmolality and hyponatremia; R60.1 Generalized edema
CPT/HCPCS: 36415; 80048; 84443

== ENCOUNTER 2022-07-02 15:22 | Outpatient (REF) | payer MEDICARE, BC, SELFPAY ==
[2022-07-02 17:24] LABS: Abs Immature Grans 0.07 10^3/uL (0.0-0.06); Absolute Basophil Count 0.02 10^3/uL (0.0-0.2); Absolute Eosinophil Count 0.09 10^3/uL (0.0-0.7); Absolute Lymphocyte Count 1.02 10^3/uL (1.2-3.4); Absolute Neutrophil Count 10.09 10^3/uL (1.2-6.7); Basophils % 0.2; Eosinophils % 0.7; HCT 25.1 % (36.0-46.0); HGB 7.9 g/dL (11.2-15.7); Immature Grans % 0.6; Lymphocytes % 8.3; MCH 33.8 pg (27.0-33.0); MCHC 31.5 % (32.0-36.0); MCV 107 fL (80-95); MPV 11.9 fL (8.0-11.0); Monocytes % 8.1; Neutrophils % 82.1; Platelet Count 147 10^3/uL (130-400); RBC 2.34 10^6/uL (3.93-5.22); RDW 14.6 % (11.7-14.6); RDW-SD 56.3 fL; WBC 12.29 10^3/uL (4.4-10.8)
[2022-07-02 18:27] LABS: Anion Gap 15.9 mmol/L (3-11); BUN 66 mg/dL (7-18); CO2 18.1 mmol/L (21.0-32.0); Calcium 8.7 mg/dL (8.5-10.1); Chloride 100 mmol/L (98-107); Estimated GFR 10.27 (mL/min/1.73m2); Glucose 78 mg/dL (74-106); Potassium 5.1 mmol/L (3.5-5.1); Sodium 134 mmol/L (136-145)
[2022-07-02 22:44] LABS: CREATININE 4.3 mg/dL (0.55-1.02)
== END 2022-07-02 15:23 | disposition home or self-care (01) ==
LOC: LBN 15:22
PROVIDERS: PCP Family Medicine; Visit Provider Nurse Practitioner Adult Health
DX: D62 Acute posthemorrhagic anemia
CPT/HCPCS: 80048; 85027; 85025

== ENCOUNTER 2022-07-15 12:01 | Emergency (ER) | payer MEDICARE, BC, SELFPAY ==
[2022-07-15] VITALS (72 sets, daily range): BP systolic 56–178; BP diastolic 15–101; PULSE 49–91; RESP 8–21; TEMP 36.3; O2SAT 95–100
--- NOTE | 2022-07-15 | DI.RAD_ITS ---
Exam(s) XR ABDOMEN FLAT PLATE EXAM: 2D digital imaging was performed. CLINICAL HISTORY: abdominal pain/anemia. COMPARISON: No exams were available for comparison TECHNIQUE: Supine views of the abdomen was performed. Two images were obtained. FINDINGS: LUNG BASES: Clear. BOWEL GAS PATTERN: Nondistended. FREE AIR: None. CALCIFICATIONS: Atherosclerosis is present. OSSEOUS STRUCTURES: Normal for age. There are bilateral hip replacements. OTHER FINDINGS: None. IMPRESSION: No evidence of an acute abdomen. DATA REPOSITORY: RADIATION DOSE DELIVERED:
[2022-07-15 12:28] LABS: Abs Immature Grans 0.23 10^3/uL (0.0-0.06); Absolute Basophil Count 0.01 10^3/uL (0.0-0.2); Basophils % 0.1; Immature Grans % 1.5; Lymphocytes % 4.2; MCH 31.9 pg (27.0-33.0); MCHC 33.7 % (32.0-36.0); MCV 95 fL (80-95); MPV 13.7 fL (8.0-11.0); Monocytes % 9.4; Neutrophils % 84.8; Nucleated RBC 7.2 % (0.0-0.3); Platelet Count 122 10^3/uL (130-400); RBC 2.04 10^6/uL (3.93-5.22); RDW 15.8 % (11.7-14.6); RDW-SD 53.7 fL; WBC 14.91 10^3/uL (4.4-10.8)
[2022-07-15 12:29] LABS: Absolute Lymphocyte Count 0.63 10^3/uL (1.2-3.4); Absolute Neutrophil Count 12.64 10^3/uL (1.2-6.7)
[2022-07-15 12:30] LABS: HCT 19.3 % (36.0-46.0); HGB 6.5 g/dL (11.2-15.7)
--- NOTE | 2022-07-15 12:30 | RT.EKG_ITS ---
APPROVED REPORT Exam: Resting ECG Reason for Exam: chest pressure Patient Location: E HR:54 bpm ECG Measurements Heart Rate 54 AXIS ID 160 P 65 QRSd 90 QRS 30 QT 528 T 76 QTc 503 Conclusion Sinus bradycardia...rate< 60 Consider left ventricular hypertrophy...(S V1+R V5/V6) >3.25mV Nonspecific T abnormalities, lateral leads...T <-0.10mV, I aVL V5 V6 Prolonged QT interval...QTc >500mS. Sinus. Normal axis. No STEMI. I have reviewed and interpreted ECG and agree with software generated interpretation.
--- NOTE | 2022-07-15 12:32 | ED.GENADUL_ITS ---
Discharge Plan Disposition Patient Disposition: [facility] Condition: Critical Discharge Details Clinical Impression: Acute GI bleeding, Acute anemia, Acute hypotension, Acute renal failure, Rhabdomyolysis, Pancreatitis, Transaminitis, Elevated troponin, Status post right hip replacement Primary Care Provider: Jarred Lujan ED Provider: Sally Wayne Home Meds and New Rx's Prescriptions: No Action atenolol 100 mg tablet 100 mg PO DAILY Qty: 90 3RF albuterol sulfate [Ventolin HFA] 90 mcg/actuation HFA aerosol inhaler 2 puff IH QID PRN (Reason: bronchospasm) Qty: 6.7 6RF rosuvastatin [Crestor] 20 mg tablet 20 mg PO DAILY Qty: 90 3RF prednisone 20 mg tablet 40 mg PO DAILY Qty: 10 0RF losartan 50 mg tablet 50 mg PO DAILY Qty: 90 3RF clindamycin HCl 300 mg capsule 600 mg PO ONCE Qty: 2 3RF Rx Instructions: 30 mins prior to dental procedure fluticasone propionate 50 mcg/actuation spray,suspension 2 spray ANTONI DAILY Qty: 9.9 5RF gabapentin 600 mg tablet 600 mg PO BID PRN (Reason: leg pain) Qty: 60 5RF bumetanide 1 mg tablet 0.5 mg PO BID Qty: 60 2RF Medical Decision Making 1210 -- 72yo F with a history of hypertension, hyperlipidemia, GERD, COPD, anxiety and stage IV chronic kidney disease who is 2-week status post right total hip replacement presents for nausea, abdominal pain, bloody diarrhea since her surgery now with dyspnea and weakness mainly on exertion for the past 2 days. Also admits to anuria for the past 2 days. Blood pressure on arrival hypertensive at 178/41, remainder vitals within normal limits. Patient appears pale with scleral icterus. Her right hip site has no signs of cellulitis. Her abdomen is soft but diffusely tender, mostly in the epigastrium and lower quadrants. Differential diagnosis includes colitis, gastroenteritis, UTI, PUD, pneumonia, anemia, electrolyte abnormality screening labs obtained on arrival and notes significant abnormalities. EKG notes rate of 54, sinus, normal axis, no STEMI nondiagnostic. Labs reviewed. Hemoglobin 6.5. BUN 120, creatinine 10.2, last check was 4, she is usually around 2. AST 891, ALT 440, lipase 1065. Troponin 519. Attempted to obtain urine sample but no urine. Will call [facility] for transfer for possible need of [place] 1300--Case discussed with [facility] transfer --no beds available. 1315 --patient now hypotensive with systolic of 80s. Patient is drowsy but oriented x3. Case discussed with Dr. Hall --recommends mass transfusion protocol with 4 units of PRBCs, FFP and 1 g of TXA. Portable chest x-ray negative for free air. Lactate obtained and 3. VBG notes a pH of 7.0, bicarb of 8, PCO2 28. 1400 --discussed with [facility] Transfer center -- no beds available. Able to speak with critical care --recommends 2 amps of bicarb and D5W with 150 M EQ's of bicarb at 150 cc an hour. Recommends obtaining a CK level. Can accept patient for transfer but likely not until this evening. Recommend calling other hospitals for transfer. 1410 --patient remains hypotensive with systolic as low as 50s. Pressors ordered. Case discussed again with Dr. Hall --will come to evaluate patient at bedside. Anesthesia paged for additional IV placement. Portable abdomen flatplate negative for acute pulm 1420 --Case discussed with Dr. Camara and [facility] who accepts patient for transfer. Recommends obtaining an acetaminophen level. Pressure now improved with systolic of 130s. Dr. Hall recommends 1 g of cefepime and Flagyl 1600 --patient able to be more stabilized to send to radiology and CT abdomen pelvis without contrast negative for obvious acute findings. Patient's blood pressure has slightly down trended with systolic of 80s to 90s on the monitor. Anesthesia placed an arterial line and her blood pressure read 153/54 prior to transfer. CK level 2103. Acetaminophen level 16 but within normal range. Suspect overall presentation potentially rhabdomyolysis causing acute renal failure secondary to inability to ambulate and lack of p.o. intake secondary to hip pain status post replacement. 1800 -- [facility] ICU attending informed of CK and acetaminophen level and pt status prior to transfer. Medical Records Medical records reviewed: Yes I reviewed the patient's medical records. Imaging Data Radiologic Study: Radiologist's impression: XR PORTABLE CHEST AP CLINICAL HISTORY:? abd pain, anemic, r/o free air TECHNIQUE:? 2D digital imaging was performed of the chest. One image was obtain ed.? An AP view was obtained. COMPARISON:? CR XR CHEST 1V IN DI DEPT from 07/10/2018 FINDINGS: MEDIASTINUM: Normal.? HEART: Normal. PULMONARY VASCULATURE: Normal. LUNGS: Clear.? PLEURAL SPACE: No pleural effusion or pneumothorax. BONE:Within normal limits for the patient's age. OTHER FINDINGS:No free air seen beneath the hemidiaphragms. ? IMPRESSION: No acute pulmonary findings. XR ABDOMEN FLAT PLATE EXAM:? 2D digital imaging was performed. CLINICAL HISTORY: ? abdominal pain/anemia.? COMPARISON:? No exams were available for comparison TECHNIQUE:? Supine views of the abdomen was performed. Two ? images were obtained. FINDINGS: LUNG BASES: Clear. BOWEL GAS PATTERN: Nondistended.? FREE AIR: None. CALCIFICATIONS: Atherosclerosis is present.? OSSEOUS STRUCTURES: Normal for age. There are bilateral hip replacements. OTHER FINDINGS: None. IMPRESSION: No evidence of an acute abdomen. CT CHEST/ABD/PEL WO EXAM:? CT CHEST/ABD/PEL WO CLINICAL HISTORY: ? dyspnea w/ exertion, weakness, abd pain ? TECHNIQUE:? Imaging Protocol: Axial computed tomography images with coronal and sagittal reformatted images were created and reviewed COMPARISON:? CT PELVIC/LOWER ABD WITH CON(P) from 12/10/2016 CT LEFT LOWER EXTREM WO CONTRAST from 03/30/2017 FINDINGS: CHEST: Tracheobronchial tree: Patent where visualized. Pulmonary parenchyma: No consolidation or dominant measurable mass. No architectural distortion. Mediastinum and Paige: No dominant adenopathy or fluid collection. The esophagus is unremarkable. Thyroid gland: There is a 0.8 cm hypodense nodule in the left lobe of the thyroid gland.? No follow-up is recommended.? Pleura: No effusion or pneumothorax. Heart: Mild cardiomegaly.? Coronary artery calcifications are present.? No pericardial effusion. Aorta: Thoracic aorta non-dilated. Atherosclerosis. Lymph nodes: Within normal limits. Bones:Within normal limits for the patient's age.? Tubes, Catheters, and Lines: The tip of the right IJ catheter is seen at the junction of the superior vena cava and right atrium. Soft tissues: Unremarkable. ABDOMEN: Liver: Normal density. No measurable mass. Gallbladder and Biliary Tract: The gallbladder is not definitely visualized.? It may be contracted and contains small gallstones.? Please correlate with the patient's surgical history.? Pancreas: Normal density, no abnormal calcifications or inflammatory process. Spleen: Normal. Adrenals: No masses seen. Kidneys: There is moderately severe left renal cortical atrophy.? There is compensatory hypertrophy of the right kidney.? There is a 1.4 cm hypodense left renal cortical lesion likely reflecting a cyst.? No radiodense stones or obstructive uropathy. No masses seen. Abdominal Aorta: Abdominal portion non-dilated. Atherosclerosis. Bowel: No obstruction or bowel wall thickening. No evidence of appendicitis.? Peritoneal Cavity: No ascites, collection or mesenteric inflammatory response. No free air. Lymph Nodes: Within normal limits. Bones: Within normal limits for the patient's age.? There is artifact in the pelvis from the patient's bilateral total hip replacements.? The bones are osteopenic.? There are numerous thoracic and lumbar compression fracture deformities. Soft Tissues: Unremarkable. PELVIS: Bladder: The urinary bladder is poorly visualized due to artifact from the patient's hip prostheses.? Reproductive Organs: 3 productive organs are poorly visualized due to the artifact from the patient's hip prostheses.? Lymph Nodes: Within normal limits. Bones: Within normal limits for the patient's age.? IMPRESSION: 1. No acute chest, abdominal or pelvic process. 2. Chronic findings in the chest abdomen and pelvis as described above. 3. Findings were discussed with Dr. Wayne At 4:30 p.m. on 07/15/2022. 4. If symptoms persist, a follow-up examination may be obtained for re- evaluation. Lab Data Lab results reviewed: Yes I reviewed the patient's lab results. Labs: Laboratory Tests Range/Units 07/15/22 07/15/22 07/15/22 12:20 12:20 13:10 WBC (4.4-10.8) 10^3/uL 14.91 H RBC (3.93-5.22) 10^6/uL 2.04 L Hgb (11.2-15.7) g/dL 6.5 L* Hct (36.0-46.0) % 19.3 L* MCV (80-95) fL 95 MCH (27.0-33.0) pg 31.9 MCHC (32.0-36.0) % 33.7 RDW (11.7-14.6) % 15.8 H Plt Count (130-400) 10^3/uL 122 L MPV (8.0-11.0) fL 13.7 H Immature Gran % 1.5 Neutrophils % 84.8 Lymphocytes % 4.2 Monocytes % 9.4 Eosinophils % 0.0 Basophils % 0.1 Nucleated RBC % (0.0-0.3) % 7.2 H Absolute Neutrophils (1.2-6.7) 10^3/uL 12.64 H Absolute Lymphocytes (1.2-3.4) 10^3/uL 0.63 L Absolute Monocytes (0.1-0.8) 10^3/uL 1.40 H Absolute Eosinophils (0.0-0.7) 10^3/uL 0.00 Absolute Basophils (0.0-0.2) 10^3/uL 0.01 PT (9.3-11.0) sec INR (0.9-1.1) APTT (21.0-27.5) sec VBG pH (7.31-7.41) VBG pCO2 (41-51) mmHg VBG pO2 mmHg VBG HCO3 (23-28) mmol/L VBG Total CO2 (24-29) mmol/L VBG O2 Saturation % VBG Base Excess (-2-3) mmol/L VBG Lactate (0.6-1.4) mmol/L 3.4 H* Sodium (136-145) mmol/L 124 L Potassium (3.5-5.1) mmol/L 4.3 Chloride (98-107) mmol/L 91 L Carbon Dioxide (21.0-32.0) mmol/L 11.7 L Anion Gap (3-11) mmol/L 21.3 H BUN (7-18) mg/dL 120 H* Creatinine (0.55-1.02) mg/dL 10.2 H* Est GFR (CKD-EPI 2020) (mL/min/1.73m2) 3.64 Glucose (74-106) mg/dL 69 L Calcium (8.5-10.1) mg/dL 7.8 L Magnesium (1.8-2.4) mg/dL 2.5 H Total Bilirubin (0.2-1.0) mg/dL 1.5 H AST (15-37) U/L 891 H ALT (14-59) U/L 440 H Alkaline Phosphatase (46-116) U/L 233 H Creatine Kinase (26-192) U/L Troponin I (<or=60) ng/L 519 H* Total Protein (6.4-8.2) g/dL 6.4 Albumin (3.4-5.0) g/dL 2.8 L Lipase (73-393) U/L 1065 H Urine Color (Yellow) Urine Clarity (Clear) Urine pH (5-8) Ur Specific [place] (1.005-1.025) Urine Protein (Negative) mg/dL Urine Ketones (Negative) mg/dL Urine Blood (Negative) Urine Nitrite (Negative) Urine Bilirubin (Negative) Urine Urobilinogen (Up TO 0.2) EU/dL Ur Leukocyte Esterase (Negative) Urine Glucose (Negative) mg/dL Acetaminophen (10-30) ug/mL COVID-19 Source SARS-CoV-2 (PCR) (Negative) Patient ABO/Rh Antibody Screen Crossmatch Range/Units 07/15/22 07/15/22 07/15/22 13:10 13:10 13:15 WBC (4.4-10.8) 10^3/uL RBC (3.93-5.22) 10^6/uL Hgb (11.2-15.7) g/dL Hct (36.0-46.0) % MCV (80-95) fL MCH (27.0-33.0) pg MCHC (32.0-36.0) % RDW (11.7-14.6) % Plt Count (130-400) 10^3/uL MPV (8.0-11.0) fL Immature Gran % Neutrophils % Lymphocytes % Monocytes % Eosinophils % Basophils % Nucleated RBC % (0.0-0.3) % Absolute Neutrophils (1.2-6.7) 10^3/uL Absolute Lymphocytes (1.2-3.4) 10^3/uL Absolute Monocytes (0.1-0.8) 10^3/uL Absolute Eosinophils (0.0-0.7) 10^3/uL Absolute Basophils (0.0-0.2) 10^3/uL PT (9.3-11.0) sec INR (0.9-1.1) APTT (21.0-27.5) sec VBG pH (7.31-7.41) 7.06 L* VBG pCO2 (41-51) mmHg 28 L VBG pO2 mmHg 58 VBG HCO3 (23-28) mmol/L 8 L VBG Total CO2 (24-29) mmol/L 8 L VBG O2 Saturation % 80 VBG Base Excess (-2-3) mmol/L < -15 L VBG Lactate (0.6-1.4) mmol/L Sodium (136-145) mmol/L Potassium (3.5-5.1) mmol/L Chloride (98-107) mmol/L Carbon Dioxide (21.0-32.0) mmol/L Anion Gap (3-11) mmol/L BUN (7-18) mg/dL Creatinine (0.55-1.02) mg/dL Est GFR (CKD-EPI 2020) (mL/min/1.73m2) Glucose (74-106) mg/dL Calcium (8.5-10.1) mg/dL Magnesium (1.8-2.4) mg/dL Total Bilirubin (0.2-1.0) mg/dL AST (15-37) U/L ALT (14-59) U/L Alkaline Phosphatase (46-116) U/L Creatine Kinase (26-192) U/L 2103 H Troponin I (<or=60) ng/L Total Protein (6.4-8.2) g/dL Albumin (3.4-5.0) g/dL Lipase (73-393) U/L Urine Color (Yellow) Urine Clarity (Clear) Urine pH (5-8) Ur Specific [place] (1.005-1.025) Urine Protein (Negative) mg/dL Urine Ketones (Negative) mg/dL Urine Blood (Negative) Urine Nitrite (Negative) Urine Bilirubin (Negative) Urine Urobilinogen (Up TO 0.2) EU/dL Ur Leukocyte Esterase (Negative) Urine Glucose (Negative) mg/dL Acetaminophen (10-30) ug/mL COVID-19 Source SARS-CoV-2 (PCR) (Negative) Patient ABO/Rh A Positive Antibody Screen NEGATIVE Crossmatch See Detail Range/Units 07/15/22 07/15/22 07/15/22 13:15 13:27 15:23 WBC (4.4-10.8) 10^3/uL RBC (3.93-5.22) 10^6/uL Hgb (11.2-15.7) g/dL Hct (36.0-46.0) % MCV (80-95) fL MCH (27.0-33.0) pg MCHC (32.0-36.0) % RDW (11.7-14.6) % Plt Count (130-400) 10^3/uL MPV (8.0-11.0) fL Immature Gran % Neutrophils % Lymphocytes % Monocytes % Eosinophils % Basophils % Nucleated RBC % (0.0-0.3) % Absolute Neutrophils (1.2-6.7) 10^3/uL Absolute Lymphocytes (1.2-3.4) 10^3/uL Absolute Monocytes (0.1-0.8) 10^3/uL Absolute Eosinophils (0.0-0.7) 10^3/uL Absolute Basophils (0.0-0.2) 10^3/uL PT (9.3-11.0) sec 18.4 H INR (0.9-1.1) 1.9 H APTT (21.0-27.5) sec 41.4 H VBG pH (7.31-7.41) VBG pCO2 (41-51) mmHg VBG pO2 mmHg VBG HCO3 (23-28) mmol/L VBG Total CO2 (24-29) mmol/L VBG O2 Saturation % VBG Base Excess (-2-3) mmol/L VBG Lactate (0.6-1.4) mmol/L Sodium (136-145) mmol/L Potassium (3.5-5.1) mmol/L Chloride (98-107) mmol/L Carbon Dioxide (21.0-32.0) mmol/L Anion Gap (3-11) mmol/L BUN (7-18) mg/dL Creatinine (0.55-1.02) mg/dL Est GFR (CKD-EPI 2020) (mL/min/1.73m2) Glucose (74-106) mg/dL Calcium (8.5-10.1) mg/dL Magnesium (1.8-2.4) mg/dL Total Bilirubin (0.2-1.0) mg/dL AST (15-37) U/L ALT (14-59) U/L Alkaline Phosphatase (46-116) U/L Creatine Kinase (26-192) U/L Troponin I (<or=60) ng/L Total Protein (6.4-8.2) g/dL Albumin (3.4-5.0) g/dL Lipase (73-393) U/L Urine Color (Yellow) Urine Clarity (Clear) Urine pH (5-8) Ur Specific Horn[place] (1.005-1.025) Urine Protein (Negative) mg/dL Urine Ketones (Negative) mg/dL Urine Blood (Negative) Urine Nitrite (Negative) Urine Bilirubin (Negative) Urine Urobilinogen (Up TO 0.2) EU/dL Ur Leukocyte Esterase (Negative) Urine Glucose (Negative) mg/dL Acetaminophen (10-30) ug/mL 16 COVID-19 Source Nasal/Nares SARS-CoV-2 (PCR) (Negative) Negative Patient ABO/Rh Antibody Screen Crossmatch Range/Units 07/15/22 17:08 WBC (4.4-10.8) 10^3/uL RBC (3.93-5.22) 10^6/uL Hgb (11.2-15.7) g/dL Hct (36.0-46.0) % MCV (80-95) fL MCH (27.0-33.0) pg MCHC (32.0-36.0) % RDW (11.7-14.6) % Plt Count (130-400) 10^3/uL MPV (8.0-11.0) fL Immature Gran % Neutrophils % Lymphocytes % Monocytes % Eosinophils % Basophils % Nucleated RBC % (0.0-0.3) % Absolute Neutrophils (1.2-6.7) 10^3/uL Absolute Lymphocytes (1.2-3.4) 10^3/uL Absolute Monocytes (0.1-0.8) 10^3/uL Absolute Eosinophils (0.0-0.7) 10^3/uL Absolute Basophils (0.0-0.2) 10^3/uL PT (9.3-11.0) sec INR (0.9-1.1) APTT (21.0-27.5) sec VBG pH (7.31-7.41) VBG pCO2 (41-51) mmHg VBG pO2 mmHg VBG HCO3 (23-28) mmol/L VBG Total CO2 (24-29) mmol/L VBG O2 Saturation % VBG Base Excess (-2-3) mmol/L VBG Lactate (0.6-1.4) mmol/L Sodium (136-145) mmol/L Potassium (3.5-5.1) mmol/L Chloride (98-107) mmol/L Carbon Dioxide (21.0-32.0) mmol/L Anion Gap (3-11) mmol/L BUN (7-18) mg/dL Creatinine (0.55-1.02) mg/dL Est GFR (CKD-EPI 2020) (mL/min/1.73m2) Glucose (74-106) mg/dL Calcium (8.5-10.1) mg/dL Magnesium (1.8-2.4) mg/dL Total Bilirubin (0.2-1.0) mg/dL AST (15-37) U/L ALT (14-59) U/L Alkaline Phosphatase (46-116) U/L Creatine Kinase (26-192) U/L Troponin I (<or=60) ng/L Total Protein (6.4-8.2) g/dL Albumin (3.4-5.0) g/dL Lipase (73-393) U/L Urine Color (Yellow) Yellow Urine Clarity (Clear) Sl Cloudy Urine pH (5-8) 6.0 Ur Specific [place] (1.005-1.025) 1.020 Urine Protein (Negative) mg/dL >=300 H Urine Ketones (Negative) mg/dL Negative Urine Blood (Negative) Large H Urine Nitrite (Negative) Negative Urine Bilirubin (Negative) Negative Urine Urobilinogen (Up TO 0.2) EU/dL 0.2 Ur Leukocyte Esterase (Negative) Negative Urine Glucose (Negative) mg/dL Negative Acetaminophen (10-30) ug/mL COVID-19 Source SARS-CoV-2 (PCR) (Negative) Patient ABO/Rh Antibody Screen Crossmatch ECG Data Attestation: I personally reviewed and interpreted this ECG (s) as follows: Interpretation: rate of 54, sinus, normal axis, no stemi. HPI General Mode of arrival: EMS . Date/Time Provider Initiated Documentation: 07/15/22 12:39 . Limitations to Documentation: physical limitation . Information obtained by: patient . HPI Narrative: Patient is a 72-year-old female with a history of hypertension, hyperlipidemia, GERD, COPD, anxiety, stage IV chronic kidney disease who is 2 weeks status post right hip replacement at [facility] presents for epigastric pain, nausea and bloody diarrhea since discharge from the hospital with shortness of breath and weakness worse with exertion since yesterday. Patient states she has not urinated for 2 days. She has been taking Tylenol for her right hip pain. She states she has previously taken a baby aspirin once daily but has stopped this because it was bothering her stomach. She states she does not take NSAIDs due to history of allergy. She has not eaten or drank much for the past few days. She states she is having increasing pain in her right hip with ambulation which is made worse with her shortness of breath and weakness so has not walked much for the past 2 days. She denies any other blood thinners. She states she is not taking any antibiotics. Related Data Home Medications Medication Instructions Recorded Confirmed albuterol sulfate 90 mcg/actuation 2 puff inhalation QID PRN 12/09/21 07/15/22 aerosol inhaler (Ventolin HFA) bronchospasm #6.7 grams atenolol 100 mg tablet 100 mg PO DAILY #90 tabs 12/09/21 07/15/22 rosuvastatin 20 mg tablet (Crestor) 20 mg PO DAILY #90 tabs 12/09/21 07/15/22 gabapentin 600 mg tablet 600 mg PO BID PRN leg pain #60 tabs 12/15/21 07/15/22 clindamycin HCl 300 mg capsule 600 mg PO ONCE #2 caps 01/08/22 07/15/22 fluticasone propionate 50 2 spray intranasal DAILY #9.9 mL 01/08/22 07/15/22 mcg/actuation nasal spray,suspension losartan 50 mg tablet 50 mg PO DAILY #90 tabs 01/08/22 07/15/22 prednisone 20 mg tablet 40 mg PO DAILY #10 tabs 04/13/22 07/15/22 bumetanide 1 mg tablet 0.5 mg PO BID #60 tabs 06/03/22 07/15/22 Previous Rx's Medication Instructions Recorded albuterol sulfate 90 mcg/actuation 2 puff inhalation QID PRN 12/09/21 aerosol inhaler (Ventolin HFA) bronchospasm #6.7 grams atenolol 100 mg tablet 100 mg PO DAILY #90 tabs 12/09/21 rosuvastatin 20 mg tablet (Crestor) 20 mg PO DAILY #90 tabs 12/09/21 gabapentin 600 mg tablet 600 mg PO BID PRN leg pain #60 tabs 12/15/21 clindamycin HCl 300 mg capsule 600 mg PO ONCE #2 caps 01/08/22 fluticasone propionate 50 2 spray intranasal DAILY #9.9 mL 01/08/22 mcg/actuation nasal spray,suspension losartan 50 mg tablet 50 mg PO DAILY #90 tabs 01/08/22 prednisone 20 mg tablet 40 mg PO DAILY #10 tabs 04/13/22 bumetanide 1 mg tablet 0.5 mg PO BID #60 tabs 06/03/22 Allergies Allergy/AdvReac Type Severity Reaction Status Date / Time hydrocodone Allergy Severe SWELLING Verified 07/15/22 14:04 lorazepam Allergy Severe Swelling/Ed Verified 07/15/22 14:04 rashaun morphine Allergy Severe /RESPIRATOR Verified 07/15/22 14:04 Y BRENDA Inhibitors Allergy Mild Verified 07/15/22 14:04 amlodipine Allergy Mild Verified 07/15/22 14:04 captopril Allergy Mild Verified 07/15/22 14:04 cefaclor [Cefaclor] Allergy Mild Verified 07/15/22 14:04 cephalexin Allergy Mild Verified 07/15/22 14:04 codeine Allergy Mild Verified 07/15/22 14:04 cyclobenzaprine Allergy Mild Verified 07/15/22 14:04 [Cyclobenzaprine] diazepam Allergy Mild Verified 07/15/22 14:04 nabumetone Allergy Mild Verified 07/15/22 14:04 Penicillins Allergy Mild Verified 07/15/22 14:04 simvastatin Allergy Mild Verified 07/15/22 14:04 atorvastatin Allergy Unknown Verified 07/15/22 14:04 ceftriaxone Allergy Unknown ITCHING, Verified 07/15/22 14:04 NAUSEA, VOMITING vancomycin Allergy Unknown ITCHING, Verified 07/15/22 14:04 NAUSEA, VOMITING warfarin Allergy Unknown PROBLEMS Verified 07/15/22 14:04 WITH BREATHING, STOMACH PAIN, SICK docusate [From Senna-S] AdvReac Severe VOMITING,WATERY Verified 07/15/22 14:04 STOOLS naproxen AdvReac Severe STOMACH Verified 07/15/22 14:04 BURN, VOMITING senna [From Senna-S] AdvReac Severe VOMITING,WATERY Verified 07/15/22 14:04 STOOLS doxazosin [From Cardura] AdvReac Intermediate swelling Verified 07/15/22 14:04 aspirin AdvReac Mild REG Verified 07/15/22 14:04 DOSE-GI DISTRESS Beta-Blockers AdvReac Unknown intolerant Verified 07/15/22 14:04 (Beta-Adrenergic Bloc estrogens, conjugated AdvReac Unknown Verified 07/15/22 14:04 [From Premarin] medroxyprogesterone AdvReac Unknown Verified 07/15/22 14:04 [From Provera] metronidazole AdvReac Unknown METALLIC Verified 07/15/22 14:04 TASTE NSAIDS (Non-Steroidal AdvReac snell Verified 07/15/22 14:04 Anti-Inflamma stomach contrast dye Allergy Intermediate rash, Uncoded 07/15/22 14:04 measles-like General Stated Complaint: Abd Prob KATHERINE: 3 Review of Systems All systems reviewed & are unremarkable except as noted in HPI and below Constitutional Constitutional: Reports as per HPI, Denies chills, Denies fever(s) and Reports weakness Eyes Eyes: Denies blurry vision ENT Ears, Nose, Mouth, and Throat: Denies dizziness, Denies sore throat and Denies throat swelling Cardiovascular Cardiovascular: Denies chest pain, Denies dyspnea and Reports dyspnea on exertion Respiratory Respiratory: Denies cough, Denies dyspnea and Reports dyspnea on exertion Gastrointestinal Gastrointestinal: Reports abdominal pain, Reports melena, Reports hematochezia, Reports diarrhea, Reports nausea and Denies vomiting Genitourinary Genitourinary: Denies hematuria and Denies dysuria Musculoskeletal Musculoskeletal: Denies back pain and Denies numbness Comments: R hip pain Integumentary/Breasts Skin/Breast: Denies lesions and Denies rash Neurologic Neurologic: Denies dizziness, Denies localized weakness, Denies numbness and Reports weakness Allergic/Immunologic Allergic/Immunologic: Denies throat swelling PFSH All Active Problems (Updated 07/15/22 @ 17:37 by Sally Wayne DO) Acute GI bleeding (Acute) Acute anemia (Acute) Acute hypotension (Acute) Acute renal failure (Acute) Rhabdomyolysis (Acute) Pancreatitis (Chronic) Transaminitis (Acute) Elevated troponin (Acute) Status post right hip replacement (Acute) Pain, joint, hip, right (Acute) Heart murmur (Acute) 01/2022-consistent with aortic stenosis Acute kidney injury superimposed on chronic kidney disease (Acute) 01/2022 Anasarca (Acute) Leg swelling (Acute) Rash (Acute) Hypokalemia (Acute) Nausea (Acute) Low magnesium level (Acute) 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) Mass of right side of neck (Acute) Enlarged lymph node in neck (Acute) Leg pain, left (Acute) Blood Pressure Check (Chronic) double aldactone Breast lump (Acute 09/01/94) Smoker (Acute 07/12/13) Status post breast biopsy (Acute) Status post carotid endarterectomy (Acute) Epigastric pain (Acute) Rosacea (Acute) Raynaud's disease (Acute) Osteoporosis (Acute 03/02/10) Compression FX's at T-6,T-10,11and 12 declines medication, endocrine consult done 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, subsequent encounter (Acute 04/26/18) Left leg pain (Acute 02/15/18) Goiter (Acute) Essential hypertension (Acute 10/01/13) Drug allergy (Acute) multiple medication allergies and intolerances Closed displaced fracture of left femoral neck with malunion (Acute 03/24/17) Aortic stenosis (Acute 04/04/14) mild echo 03/15 Abnormal laboratory test (Acute) elevated MCV; normal B12 and folate Chronic hip pain after total replacement of left hip joint (Acute) Bronchospasm, acute (Acute) Community acquired pneumonia (Acute) Medical History (Updated 07/15/22 @ 17:37 by Sally Wayne DO) Anxiety Carotid artery stenosis (09/01/03) 03/2007 Carotid [place]arte[place] [facility] [place] [facility] [place] left [facility] 07/09 Chronic obstructive pulmonary disease (10/02/16) 10/02/16-O2 SAT 85% Gastroesophageal reflux disease Hyperlipidemia Hypertension Stage 4 chronic kidney disease 01/19/22-proteinuria Cr-2.7 Surgical History (Updated 07/15/22 @ 17:37 by Sally Wayne DO) Biopsy of breast (~1994) [place] [facility] [place] [facility] [place] left [place] [facility] Total replacement of hip (03/31/17) DR. APARICIO-LEFT REVISION Family History Mother , AGE 89 MRSA infection Breast cancer Stomach cancer Father , AGE 53 Essential hypertension Heart disease Sister , AGE 64 Diabetes Essential hypertension Heart disease Breast cancer Colon cancer Paternal Grandmother Heart disease Sister , AGE 52 Heart disease Paternal Grandfather Heart disease Social History (Updated 06/04/21 @ 12:49 by Sophy Mann) Smoking/Tobacco Use Status: Current-Occasional Tobacco Type: cigarettes Tobacco: How many years used: 20 Quit status: considering quitting Second Hand Exposure: Yes Smoking risk assessment performed?: Yes Alcohol Intake: never Drug use: Never Substance use type: does not use Household members: none Housing: house Communication Needs: None Do you need help understanding health information?: Rarely Pets and animals: No Sexually active: No Do you think of yourself as: straight/heterosexual Current gender identity: female What is your relationship status?: How often do you talk on the phone with friends or family?: decline to answer How often do you get together with friends or relatives?: decline to answer How often do you attend gnosticism or protestant services?: decline to answer Do you belong to any clubs or organized social groups?: no Panel score (0-1 are the most socially isolated patients): 0 What type of physical activity do you participate in: walking Jen/Bahai: Caodaism Special jen needs: No Seatbelt use: always Helmet use: No Drive intox 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 Do you feel safe at home: Yes Do you feel safe in your relationship?: Yes Exam Const General: cooperative and lethargic HENTN Head: normal to inspection Face and sinus: normal facial exam Mouth: mucous membranes dry Eyes General: appearance normal, both eyes and all related structures Sclera: scleral abnormality bilaterally other (icterus) Pupils: PERRL EOM: EOM intact bilaterally Neck Neck: normal visual inspection and No submandibular swelling Lymphatic: no lymphadenopathy noted Chest Chest: normal inspection of the chest and no tenderness Resp Effort & Inspection: normal respiratory effort and able to speak in complete sentences Auscultation: clear to auscultation bilaterally Cardio Rate: regular rate Rhythm: regular rhythm Heart Sounds: murmur GI Inspection: normal to inspection Palpation: soft, not firm, not rigid and tender in the epigastrum, in the LLQ, in the RLQ and suprapubicly Auscultation: hypoactive bowel sounds Abdomen image: 1. Purple ecchymoses Back/Spine/Pelvis Thoracic/Lumbar Spine: thoracic and lumbar spine normal to inspection Pelvis: no pain with anterior-posterior compression Skin General skin exam: no rashes or lesions noted Neuro General: patient alert, patient awake and patient oriented x3 Cognition: normal cognition Speech: speech normal Motor: muscle tone normal throughout Sensory Exam: no sensory deficits noted Extrem General: capillary refill normal, no calf tenderness bilaterally and edema Laterality: bilateral (2+ pitting ) Upper/lower leg/hip images: 1. Glue in place, surrounding ecchymoses. No evidence of cellulitis. Psych Appearance: grossly normal Mental Status: mental status grossly normal Speech and Movement: speech and movement normal Affect: normal affect Course Vital Signs Vital signs: Vital Signs Temperature 97.3 F L 07/15/22 12:00 Pulse 61 07/15/22 12:00 Respiratory Rate 20 07/15/22 12:00 Blood Pressure 178/41 H 07/15/22 12:00 Pulse Oximetry 99 07/15/22 12:00 Temperature 97.3 F L 07/15/22 12:00 Temperature Source Skin 07/15/22 12:00 Pulse 61 07/15/22 12:00 Respiratory Rate 20 07/15/22 12:00 Respiratory Effort 07/15/22 12:06 Blood Pressure 178/41 H 07/15/22 12:00 Pulse Oximetry 99 07/15/22 12:00 Oxygen Delivery Method Room Air 07/15/22 12:00 Oxygen Flow Rate 0 07/15/22 12:00 Pain Level 10 07/15/22 12:00 Comment 07/15/22 12:00 Lab/Test Results Lab/Test Results: Laboratory Tests Range/Units 07/15/22 12:20 WBC (4.4-10.8) 10^3/uL 14.91 H RBC (3.93-5.22) 10^6/uL 2.04 L Hgb (11.2-15.7) g/dL 6.5 L* Hct (36.0-46.0) % 19.3 L* MCV (80-95) fL 95 MCH (27.0-33.0) pg 31.9 MCHC (32.0-36.0) % 33.7 RDW (11.7-14.6) % 15.8 H Plt Count (130-400) 10^3/uL 122 L MPV (8.0-11.0) fL 13.7 H Immature Gran % 1.5 Neutrophils % 84.8 Lymphocytes % 4.2 Monocytes % 9.4 Eosinophils % 0.0 Basophils % 0.1 Nucleated RBC % (0.0-0.3) % 7.2 H Absolute Neutrophils (1.2-6.7) 10^3/uL 12.64 H Absolute Lymphocytes (1.2-3.4) 10^3/uL 0.63 L Absolute Monocytes (0.1-0.8) 10^3/uL 1.40 H Absolute Eosinophils (0.0-0.7) 10^3/uL 0.00 Absolute Basophils (0.0-0.2) 10^3/uL 0.01
[2022-07-15 12:48] LABS: ALT 440 U/L (14-59); Albumin 2.8 g/dL (3.4-5.0); Alkaline Phosphatase 233 U/L (46-116); Anion Gap 21.3 mmol/L (3-11); Bilirubin, Total 1.5 mg/dL (0.2-1.0); CO2 11.7 mmol/L (21.0-32.0); Calcium 7.8 mg/dL (8.5-10.1); Chloride 91 mmol/L (98-107); Estimated GFR 3.64 (mL/min/1.73m2); Glucose 69 mg/dL (74-106); Lipase 1065 U/L (73-393); Magnesium 2.5 mg/dL (1.8-2.4); Potassium 4.3 mmol/L (3.5-5.1); Total Protein 6.4 g/dL (6.4-8.2)
[2022-07-15 12:49] LABS: AST 891 U/L (15-37); Sodium 124 mmol/L (136-145)
[2022-07-15 12:52] LABS: BUN 120 mg/dL (7-18); CREATININE 10.2 mg/dL (0.55-1.02); Troponin I 519 ng/L (<or=60)
[2022-07-15] MEDS: Normal Saline 1,000 ML 1000 ML IV (13:05)
[2022-07-15] MEDS: Dextrose 50%-Water 25 GM/50 ML SYR IVP (13:21)
[2022-07-15] MEDS: Ondansetron 4 MG/2 ML VIAL IVP (13:25)
[2022-07-15] MEDS: Normal Saline Flush 10 ML SYR IVP (13:28)
[2022-07-15] MEDS: Pantoprazole 40 MG VIAL IVP (13:28)
--- NOTE | 2022-07-15 13:30 | DI.CT_ITS ---
Exam(s) CT CHEST/ABD/PEL WO EXAM: CT CHEST/ABD/PEL WO CLINICAL HISTORY: dyspnea w/ exertion, weakness, abd pain TECHNIQUE: Imaging Protocol: Axial computed tomography images with coronal and sagittal reformatted images were created and reviewed COMPARISON: CT PELVIC/LOWER ABD WITH CON(P) from 12/10/2016 CT LEFT LOWER EXTREM WO CONTRAST from 03/30/2017 FINDINGS: CHEST: Tracheobronchial tree: Patent where visualized. Pulmonary parenchyma: No consolidation or dominant measurable mass. No architectural distortion. Mediastinum and Paige: No dominant adenopathy or fluid collection. The esophagus is unremarkable. Thyroid gland: There is a 0.8 cm hypodense nodule in the left lobe of the thyroid gland. No follow-u p is recommended. Pleura: No effusion or pneumothorax. Heart: Mild cardiomegaly. Coronary artery calcifications are present. No pericardial effusion. Aorta: Thoracic aorta non-dilated. Atherosclerosis. Lymph nodes: Within normal limits. Bones:Within normal limits for the patient's age. Tubes, Catheters, and Lines: The tip of the right IJ catheter is seen at the junction of the superior vena cava and right atrium. Soft tissues: Unremarkable. ABDOMEN: Liver: Normal density. No measurable mass. Gallbladder and Biliary Tract: The gallbladder is not definitely visualized. It may be contracted an d contains small gallstones. Please correlate with the patient's surgical history. Pancreas: Normal density, no abnormal calcifications or inflammatory process. Spleen: Normal. Adrenals: No masses seen. Kidneys: There is moderately severe left renal cortical atrophy. There is compensatory hypertrophy o f the right kidney. There is a 1.4 cm hypodense left renal cortical lesion likely reflecting a cyst. No radiodense stones or obstructive uropathy. No masses seen. Abdominal Aorta: Abdominal portion non-dilated. Atherosclerosis. Bowel: No obstruction or bowel wall thickening. No evidence of appendicitis. Peritoneal Cavity: No ascites, collection or mesenteric inflammatory response. No free air. Lymph Nodes: Within normal limits. Bones: Within normal limits for the patient's age. There is artifact in the pelvis from the patient' s bilateral total hip replacements. The bones are osteopenic. There are numerous thoracic and lumba r compression fracture deformities. Soft Tissues: Unremarkable. PELVIS: Bladder: The urinary bladder is poorly visualized due to artifact from the patient's hip prostheses. Reproductive Organs: 3 productive organs are poorly visualized due to the artifact from the patient's hip prostheses. Lymph Nodes: Within normal limits. Bones: Within normal limits for the patient's age. IMPRESSION: 1. No acute chest, abdominal or pelvic process. 2. Chronic findings in the chest abdomen and pelvis as described above. 3. Findings were discussed with Dr. Wayne At 4:30 p.m. on 07/15/2022. 4. If symptoms persist, a follow-up examination may be obtained for re-evaluation. RADIATION DOSE DELIVERED: 898.26mGy.cm Total DLP 898.26mGy.cm Total DLP DATA REPOSITORY: All CT scans at this facility are submitted to the National Radiology Data Registry (NRDR) Dose Index Registry (DIR) with the [employer] (A[employer]). RADIATION OPTIMIZATION: All CT scans at this facility use at least one of these dose optimization te chniques: automated exposure control; mA and/or kV adjustment per patient size (includes targeted exa ms where dose is matched to clinical indication); or iterative reconstruction.
[2022-07-15 13:32] LABS: Source Nasal/Nares
[2022-07-15] MEDS: PANTOPRAZOLE 80 MG in Normal Saline 100 ML 10 MG IV (13:34)
--- NOTE | 2022-07-15 13:49 | DI.RAD_ITS ---
Exam(s) XR PORTABLE CHEST AP EXAM: XR PORTABLE CHEST AP CLINICAL HISTORY: abd pain, anemic, r/o free air TECHNIQUE: 2D digital imaging was performed of the chest. One image was obtained. An AP view was ob tained. COMPARISON: CR XR CHEST 1V IN DI DEPT from 07/10/2018 FINDINGS: MEDIASTINUM: Normal. HEART: Normal. PULMONARY VASCULATURE: Normal. LUNGS: Clear. PLEURAL SPACE: No pleural effusion or pneumothorax. BONE:Within normal limits for the patient's age. OTHER FINDINGS:No free air seen beneath the hemidiaphragms. IMPRESSION: No acute pulmonary findings. DATA REPOSITORY: RADIATION DOSE DELIVERED:
[2022-07-15 13:51] LABS: INR 1.9 (0.9-1.1); PTT Activated 41.4 sec (21.0-27.5); Prothrombin Time 18.4 sec (9.3-11.0)
[2022-07-15] MEDS: Normal Saline 1,000 ML 125 ML IV (14:10)
[2022-07-15 14:16] LABS: HCO3 (Venous) 8 mmol/L (23-28); O2 Sat (Venous) 80 %; TCO2 (Venous) 8 mmol/L (24-29); pCO2 (Venous) 28 mmHg (41-51); pO2 (Venous) 58 mmHg
[2022-07-15 14:18] LABS: pH (Venous) 7.06 (7.31-7.41)
[2022-07-15 14:20] LABS: Lactate 3.4 mmol/L (0.6-1.4)
[2022-07-15] MEDS: Tranexamic Acid 1,000 MG/10 ML VIAL 1000 MG IVP (14:20)
[2022-07-15 14:32] LABS: COVID-19 PCR Negative (Negative)
--- NOTE | 2022-07-15 14:54 | NUR.NOTE ---
Nursing Note: EKG was done at 12:34, cannot access patient chart at this time
[2022-07-15] MEDS: HYDROmorphone 2 MG/ML SYR IVP ×2 (14:58→15:05)
[2022-07-15 15:13] LABS: Creatine Kinase 2103 U/L (26-192)
--- NOTE | 2022-07-15 15:15 | DI.RAD_ITS ---
Exam(s) XR PORTABLE CHEST AP EXAM: XR PORTABLE CHEST AP CLINICAL HISTORY: confirm central line placement TECHNIQUE: 2D digital imaging was performed of the chest. One image was obtained. An AP view was ob tained. COMPARISON: CR XR PORTABLE CHEST AP from 07/15/2022 FINDINGS: MEDIASTINUM: Normal. HEART: Normal. PULMONARY VASCULATURE: Normal. LUNGS: Clear. PLEURAL SPACE: No pleural effusion or pneumothorax. BONE:Within normal limits for the patient's age. OTHER FINDINGS:There has been interval placement of a right IJ catheter. The tip of the catheter is seen in the right atrium. IMPRESSION: 1. No acute pulmonary findings. 2. The tip of the newly placed right IJ catheter is seen in the right atrium. 3. No pneumothorax is identified. DATA REPOSITORY: RADIATION DOSE DELIVERED:
[2022-07-15] MEDS: Sodium Bicarbonate 50 MEQ/50 ML SYR 100 MEQ IVP (15:20)
--- NOTE | 2022-07-15 15:41 | W.SURGCON ---
Date of service: 07/15/22 Time of Service: 15:41 History of Present Illness History of Present Illness Chief Complaint: Hemorrhagic shock and need for vascular access Narrative: Consult for the emergency department for emergency intravenous access [facility] All Active Problems (Updated 07/15/22 @ 13:06 by Sally Wayne DO) Pain, joint, hip, right (Acute) Heart murmur (Acute) 01/2022-consistent with aortic stenosis Acute kidney injury superimposed on chronic kidney disease (Acute) 01/2022 Anasarca (Acute) Leg swelling (Acute) Rash (Acute) Hypokalemia (Acute) Nausea (Acute) Low magnesium level (Acute) 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) Mass of right side of neck (Acute) Enlarged lymph node in neck (Acute) Leg pain, left (Acute) Blood Pressure Check (Chronic) double aldactone Breast lump (Acute 09/01/94) Smoker (Acute 07/12/13) Status post breast biopsy (Acute) Status post carotid endarterectomy (Acute) Epigastric pain (Acute) Rosacea (Acute) Raynaud's disease (Acute) Osteoporosis (Acute 03/02/10) Compression FX's at T-6,T-10,11and 12 declines medication, endocrine consult done 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, subsequent encounter (Acute 04/26/18) Left leg pain (Acute 02/15/18) Goiter (Acute) Essential hypertension (Acute 10/01/13) Drug allergy (Acute) multiple medication allergies and intolerances Closed displaced fracture of left femoral neck with malunion (Acute 03/24/17) Aortic stenosis (Acute 04/04/14) mild echo 03/15 Abnormal laboratory test (Acute) elevated MCV; normal B12 and folate Chronic hip pain after total replacement of left hip joint (Acute) Bronchospasm, acute (Acute) Community acquired pneumonia (Acute) Medical History (Updated 07/15/22 @ 13:06 by Sally Wayne DO) Anxiety Carotid artery stenosis (09/01/03) 03/2007 [place] [facility] [place] [facility] 07/09 Chronic obstructive pulmonary disease (10/02/16) 10/02/16-O2 SAT 85% Gastroesophageal reflux disease Hyperlipidemia Hypertension Stage 4 chronic kidney disease 01/19/22-proteinuria Cr-2.7 Surgical History (Updated 04/09/19 @ 15:12 by Linda Zhu) Biopsy of breast (~1994) [place] [facility] [place] [facility] Total replacement of hip (03/31/17) DR. APARICIO-LEFT REVISION Family History Mother , AGE 89 MRSA infection Breast cancer Stomach cancer Father , AGE 53 Essential hypertension Heart disease Sister , AGE 64 Diabetes Essential hypertension Heart disease Breast cancer Colon cancer Paternal Grandmother Heart disease Sister , AGE 52 Heart disease Paternal Grandfather Heart disease Social History (Updated 06/04/21 @ 12:49 by Sophy Mann) Smoking/Tobacco Use Status: Current-Occasional Tobacco Type: cigarettes Tobacco: How many years used: 20 Quit status: considering quitting Second Hand Exposure: Yes Smoking risk assessment performed?: Yes Alcohol Intake: never Drug use: Never Substance use type: does not use Household members: none Housing: house Communication Needs: None Do you need help understanding health information?: Rarely Pets and animals: No Sexually active: No Do you think of yourself as: straight/heterosexual Current gender identity: female What is your relationship status?: How often do you talk on the phone with friends or family?: decline to answer How often do you get together with friends or relatives?: decline to answer How often do you attend orthodox or mandaeism services?: decline to answer Do you belong to any clubs or organized social groups?: no Panel score (0-1 are the most socially isolated patients): 0 What type of physical activity do you participate in: walking Jen/Denominational: Anabaptism Special jen needs: No Seatbelt use: always Helmet use: No Drive 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 Do you feel safe at home: Yes Do you feel safe in your relationship?: Yes Results Last Vital Signs Temp 97.3 F L 07/15/22 12:00 Pulse 51 L 07/15/22 15:21 Resp 17 07/15/22 15:30 BP 115/42 L 07/15/22 15:21 Pulse Ox 99 07/15/22 15:30 Labs Result diagrams: 07/15/22 12:20 07/15/22 12:20 Labs: Laboratory Results - last 24 hr 07/15/22 07/15/22 07/15/22 12:20 12:20 13:10 WBC 14.91 H RBC 2.04 L Hgb 6.5 L* Hct 19.3 L* MCV 95 MCH 31.9 MCHC 33.7 RDW 15.8 H Plt Count 122 L MPV 13.7 H Immature Gran % 1.5 Neutrophils % 84.8 Lymphocytes % 4.2 Monocytes % 9.4 Eosinophils % 0.0 Basophils % 0.1 Nucleated RBC % 7.2 H Absolute Neutrophils 12.64 H Absolute Lymphocytes 0.63 L Absolute Monocytes 1.40 H Absolute Eosinophils 0.00 Absolute Basophils 0.01 PT INR APTT VBG pH VBG pCO2 VBG pO2 VBG HCO3 VBG Total CO2 VBG O2 Saturation VBG Base Excess VBG Lactate 3.4 H* Sodium 124 L Potassium 4.3 Chloride 91 L Carbon Dioxide 11.7 L Anion Gap 21.3 H BUN 120 H* Creatinine 10.2 H* Est GFR (CKD-EPI 2020) 3.64 Glucose 69 L Calcium 7.8 L Magnesium 2.5 H Total Bilirubin 1.5 H AST 891 H ALT 440 H Alkaline Phosphatase 233 H Creatine Kinase Troponin I 519 H* Total Protein 6.4 Albumin 2.8 L Lipase 1065 H COVID-19 Source SARS-CoV-2 (PCR) Patient ABO/Rh Antibody Screen Crossmatch 07/15/22 07/15/22 07/15/22 13:10 13:10 13:15 WBC RBC Hgb Hct MCV MCH MCHC RDW Plt Count MPV Immature Gran % Neutrophils % Lymphocytes % Monocytes % Eosinophils % Basophils % Nucleated RBC % Absolute Neutrophils Absolute Lymphocytes Absolute Monocytes Absolute Eosinophils Absolute Basophils PT INR APTT VBG pH 7.06 L* VBG pCO2 28 L VBG pO2 58 VBG HCO3 8 L VBG Total CO2 8 L VBG O2 Saturation 80 VBG Base Excess < -15 L VBG Lactate Sodium Potassium Chloride Carbon Dioxide Anion Gap BUN Creatinine Est GFR (CKD-EPI 2020) Glucose Calcium Magnesium Total Bilirubin AST ALT Alkaline Phosphatase Creatine Kinase 2103 H Troponin I Total Protein Albumin Lipase COVID-19 Source SARS-CoV-2 (PCR) Patient ABO/Rh A Positive Antibody Screen NEGATIVE Crossmatch See Detail 07/15/22 07/15/22 13:15 13:27 WBC RBC Hgb Hct MCV MCH MCHC RDW Plt Count MPV Immature Gran % Neutrophils % Lymphocytes % Monocytes % Eosinophils % Basophils % Nucleated RBC % Absolute Neutrophils Absolute Lymphocytes Absolute Monocytes Absolute Eosinophils Absolute Basophils PT 18.4 H INR 1.9 H APTT 41.4 H VBG pH VBG pCO2 VBG pO2 VBG HCO3 VBG Total CO2 VBG O2 Saturation VBG Base Excess VBG Lactate Sodium Potassium Chloride Carbon Dioxide Anion Gap BUN Creatinine Est GFR (CKD-EPI 2020) Glucose Calcium Magnesium Total Bilirubin AST ALT Alkaline Phosphatase Creatine Kinase Troponin I Total Protein Albumin Lipase COVID-19 Source Nasal/Nares SARS-CoV-2 (PCR) Negative Patient ABO/Rh Antibody Screen Crossmatch Procedures Central Line Placement Right IJ: Time out performed: Yes Patient placed on monitor/pulse ox: Yes MD prep: mask, gown and gloves Central line prep: Chlorhexidine scrub and sterile drapes applied Local anesthesia used: lidocaine 1% Amount of anesthesia used (ml): 4 Ultrasound used for placement: Yes Central line lumen inserted: triple Post procedure: sutured in place, good blood return, all ports aspirated, flushed, capped and sterile dressing applied Post procedure x-ray: tip of catheter in good position and no pneumothorax seen Patient tolerated procedure: well and no complications Complications: none Additional comments: I joined the team in the emergency department to assist with intravenous access. Dr. Hall had attempted right subclavian access with ultrasound guidance. Unfortunately, she was not able to cannulate the subclavian vein. Due to coinciding emergencies, I relieved her, and performed ultrasound examination of the right internal jugular vein. It was compressible. There was no evidence of thrombus. Next, after prepping and draping the neck in the usual fashion. Under the direct vision of the ultrasound, I directly cannulated the right internal jugular vein, and used a guidewire to establish triple-lumen vascular access using Seldinger technique in the usual fashion. I personally reviewed the chest x-ray. There was no evidence of any pneumothorax on the right side, and the central line appeared well-positioned.
[2022-07-15 16:17] LABS: Acetaminophen 16 ug/mL (10-30)
--- NOTE | 2022-07-15 16:23 | W.ANESVAS ---
Arterial Line Placement Date Performed: 07/15/22 Procedure Time: 15:34 Procedure Location: Emergency Department Requesting Provider: Sally Wayne Timeout Performed: Yes Sedation Given (Indicate Dose Given): No Sedation given Patient Mental Status: Awake Sterility: Hand Hygiene, Surgical Cap, Surgical Mask, Sterile Gloves, Sterile Drape/Sheet and Chlorhexidine Laterality: Left Insertion Site: Radial Arterial Line Catheter: 20G Arrow Arterial Line Procedure: Vessel accessed with catheter over needle, Guidewire placed with ease, Catheter placed without resistance and Guidewire removed Dressing: Tegaderm Applied Ultrasound: Used to frantz site Number of Attempts (See previous attempts in note section): 3 Procedure Tolerated: No Complications and Patient did not tolerate well Procedure Outcome: Successful Procedure Comment:: Difficult placement, somewhat due to patient movement and pain. First attempt with palpation but no flash, US to room, however had issues with visualization due to probe malfunction. Once troubleshooted was able to place with ease, slightly tortuous superficial radial artery. Found zeroed ABP 215/60 with good waveform, requested RNs downtitrate vasopressors, discussed with Dr. Wayne Performed By: Oscar Jones
[2022-07-15] MEDS: SODIUM BICARBONATE 150 MEQ in DEXTROSE 5%-WATER 850 ML IV (16:41)
[2022-07-15] MEDS: HYDROmorphone 2 MG/ML SYR 0.5 MG IVP (17:07)
[2022-07-15 17:14] LABS: Bilirubin Negative (Negative); Blood Large (Negative); Clarity Sl Cloudy (Clear); Glucose Negative (Negative); Ketones Negative (Negative); Leukocyte Esterase Negative (Negative); Nitrite Negative (Negative); Urobilinogen 0.2 EU/dL (Up TO 0.2)
--- NOTE | 2022-07-15 17:17 | W.SURGCON ---
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) Mass of right side of neck (Acute) Enlarged lymph node in neck (Acute) Leg pain, left (Acute) Blood Pressure Check (Chronic) double aldactone Breast lump (Acute 09/01/94) Smoker (Acute 07/12/13) Status post breast biopsy (Acute) Status post carotid endarterectomy (Acute) Epigastric pain (Acute) Rosacea (Acute) Raynaud's disease (Acute) Osteoporosis (Acute 03/02/10) Compression FX's at T-6,T-10,11and 12 declines medication, endocrine consult done 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, subsequent encounter (Acute 04/26/18) Left leg pain (Acute 02/15/18) Goiter (Acute) Essential hypertension (Acute 10/01/13) Drug allergy (Acute) multiple medication allergies and intolerances Closed displaced fracture of left femoral neck with malunion (Acute 03/24/17) Aortic stenosis (Acute 04/04/14) mild echo 03/15 Abnormal laboratory test (Acute) elevated MCV; normal B12 and folate Chronic hip pain after total replacement of left hip joint (Acute) Bronchospasm, acute (Acute) Community acquired pneumonia (Acute) Medical History (Updated 07/15/22 @ 13:06 by Sally Wayne DO) Anxiety Carotid artery stenosis (09/01/03) 03/2007 [place] [facility] [place] [facility] 07/09 Chronic obstructive pulmonary disease (10/02/16) 10/02/16-O2 SAT 85% Gastroesophageal reflux disease Hyperlipidemia Hypertension Stage 4 chronic kidney disease 01/19/22-proteinuria Cr-2.7 Surgical History (Updated 04/09/19 @ 15:12 by Linda Zhu) Biopsy of breast (~1994) [place] [facility] [place] [facility] Total replacement of hip (03/31/17) DR. APARICIO-LEFT REVISION Family History Mother , AGE 89 MRSA infection Breast cancer Stomach cancer Father , AGE 53 Essential hypertension Heart disease Sister , AGE 64 Diabetes Essential hypertension Heart disease Breast cancer Colon cancer Paternal Grandmother Heart disease Sister , AGE 52 Heart disease Paternal Grandfather Heart disease Social History (Updated 06/04/21 @ 12:49 by Sophy Mann) Smoking/Tobacco Use Status: Current-Occasional Tobacco Type: cigarettes Tobacco: How many years used: 20 Quit status: considering quitting Second Hand Exposure: Yes Smoking risk assessment performed?: Yes Alcohol Intake: never Drug use: Never Substance use type: does not use Household members: none Housing: house Communication Needs: None Do you need help understanding health information?: Rarely Pets and animals: No Sexually active: No Do you think of yourself as: straight/heterosexual Current gender identity: female What is your relationship status?: How often do you talk on the phone with friends or family?: decline to answer How often do you get together with friends or relatives?: decline to answer How often do you attend presybeterian or yazidism services?: decline to answer Do you belong to any clubs or organized social groups?: no Panel score (0-1 are the most socially isolated patients): 0 What type of physical activity do you participate in: walking Jen/[employer]: [facility] Special jen needs: No Seatbelt use: always Helmet use: No Drive intox or ride w/intox concrete mixer truck driver: No Do you feel safe at home: Yes Do you feel safe in your relationship?: Yes Results Last Vital Signs Temp 36.3 C L 07/15/22 12:00 Pulse 52 L 07/15/22 16:42 Resp 13 07/15/22 16:42 BP 106/42 L 07/15/22 16:42 Pulse Ox 100 07/15/22 16:42 Labs Result diagrams: 07/15/22 12:20 07/15/22 12:20 Labs: Laboratory Results - last 24 hr 07/15/22 07/15/22 07/15/22 12:20 12:20 13:10 WBC 14.91 H RBC 2.04 L Hgb 6.5 L* Hct 19.3 L* MCV 95 MCH 31.9 MCHC 33.7 RDW 15.8 H Plt Count 122 L MPV 13.7 H Immature Gran % 1.5 Neutrophils % 84.8 Lymphocytes % 4.2 Monocytes % 9.4 Eosinophils % 0.0 Basophils % 0.1 Nucleated RBC % 7.2 H Absolute Neutrophils 12.64 H Absolute Lymphocytes 0.63 L Absolute Monocytes 1.40 H Absolute Eosinophils 0.00 Absolute Basophils 0.01 PT INR APTT VBG pH VBG pCO2 VBG pO2 VBG HCO3 VBG Total CO2 VBG O2 Saturation VBG Base Excess VBG Lactate 3.4 H* Sodium 124 L Potassium 4.3 Chloride 91 L Carbon Dioxide 11.7 L Anion Gap 21.3 H BUN 120 H* Creatinine 10.2 H* Est GFR (CKD-EPI 2020) 3.64 Glucose 69 L Calcium 7.8 L Magnesium 2.5 H Total Bilirubin 1.5 H AST 891 H ALT 440 H Alkaline Phosphatase 233 H Creatine Kinase Troponin I 519 H* Total Protein 6.4 Albumin 2.8 L Lipase 1065 H Acetaminophen COVID-19 Source SARS-CoV-2 (PCR) Patient ABO/Rh Antibody Screen Crossmatch 07/15/22 07/15/22 07/15/22 13:10 13:10 13:15 WBC RBC Hgb Hct MCV MCH MCHC RDW Plt Count MPV Immature Gran % Neutrophils % Lymphocytes % Monocytes % Eosinophils % Basophils % Nucleated RBC % Absolute Neutrophils Absolute Lymphocytes Absolute Monocytes Absolute Eosinophils Absolute Basophils PT INR APTT VBG pH 7.06 L* VBG pCO2 28 L VBG pO2 58 VBG HCO3 8 L VBG Total CO2 8 L VBG O2 Saturation 80 VBG Base Excess < -15 L VBG Lactate Sodium Potassium Chloride Carbon Dioxide Anion Gap BUN Creatinine Est GFR (CKD-EPI 2020) Glucose Calcium Magnesium Total Bilirubin AST ALT Alkaline Phosphatase Creatine Kinase 2103 H Troponin I Total Protein Albumin Lipase Acetaminophen COVID-19 Source SARS-CoV-2 (PCR) Patient ABO/Rh A Positive Antibody Screen NEGATIVE Crossmatch See Detail 07/15/22 07/15/22 07/15/22 13:15 13:27 15:23 WBC RBC Hgb Hct MCV MCH MCHC RDW Plt Count MPV Immature Gran % Neutrophils % Lymphocytes % Monocytes % Eosinophils % Basophils % Nucleated RBC % Absolute Neutrophils Absolute Lymphocytes Absolute Monocytes Absolute Eosinophils Absolute Basophils PT 18.4 H INR 1.9 H APTT 41.4 H VBG pH VBG pCO2 VBG pO2 VBG HCO3 VBG Total CO2 VBG O2 Saturation VBG Base Excess VBG Lactate Sodium Potassium Chloride Carbon Dioxide Anion Gap BUN Creatinine Est GFR (CKD-EPI 2020) Glucose Calcium Magnesium Total Bilirubin AST ALT Alkaline Phosphatase Creatine Kinase Troponin I Total Protein Albumin Lipase Acetaminophen 16 COVID-19 Source Nasal/Nares SARS-CoV-2 (PCR) Negative Patient ABO/Rh Antibody Screen Crossmatch
[2022-07-15 17:22] LABS: Bacteria Negative HPF (Negative); C & S Indicated? No; Crystals Negative HPF (Negative); Epithelial Cells Few HPF (Negative); Mucus Negative (Negative); WBC 0-2 HPF (0-5)
[2022-07-15] MEDS: CEFEPIME 1 GM in Normal Saline 50 ML IVPB (17:36)
[2022-07-15] MEDS: metroNIDAZOLE 1,000 MG/200 ML BAG 200 MG IVPB (17:36)
--- NOTE | 2022-07-17 09:04 | NUR.NOTE ---
[facility] called with a question about plasma for this patient. I looked into what was ordered and what was given
[2022-07-19 11:35] LABS: Hepatitis A Antibody IgM Negative (Negative); Hepatitis B Core Antibody Negative (Negative); Hepatitis B surface Ag Negative (Negative); Hepatitis C Ab w Rflx HCV PCR Negative (Negative)
== END 2022-07-15 17:50 ==
PROVIDERS: Emergency Provider Physician Assistant; PCP Family Medicine
DX: K92.2 Gastrointestinal hemorrhage, unspecified (principal); D64.9 Anemia, unspecified; I95.9 Hypotension, unspecified; N17.9 Acute kidney failure, unspecified; M62.82 Rhabdomyolysis; K85.90 Acute pancreatitis without necrosis or infection, unspecified; R74.01 Elevation of levels of liver transaminase levels; R77.8 Other specified abnormalities of plasma proteins; I12.9 Hypertensive chronic kidney disease with stage 1 through stage 4 chronic kidney disease, or unspecified chronic kidney disease; N18.4 Chronic kidney disease, stage 4 (severe); J44.9 Chronic obstructive pulmonary disease, unspecified; Z96.641 Presence of right artificial hip joint; Z79.52 Long term (current) use of systemic steroids; Z20.822 Contact with and (suspected) exposure to COVID-19; Z79.899 Other long term (current) drug therapy
CPT/HCPCS: 36430; 36556; 36620; 51702; 71250; 80053; 82550; 82805; 83690; 86704; 86709; 86803; 86850; 86900; 86901; 86920; 87340; 87635; 93005; 96365; 96366; 96375; 96376; 99285; 71045; 74018; 74176; 80329; 81003; 81015; 83605; 83735; 84484; 85025; 85610; 85730; 93010; J1170; J2405; J7060; P9016